=== PATIENT | female | born 1970 | race Hispanic/Latino ===

== ENCOUNTER 2022-01-07 13:42 | Emergency (ER) | payer OTHER ==
[~2022-01-07] VITALS: Ht 154.9 cm; Wt 62.6 kg
[2022-01-07 14:26] LABS: BASOPHILS % (AUTO) 0.2 % (0.0-5.0); EOSINOPHILS % (AUTO) 0.6 % (0.0-8.0); HEMATOCRIT 33.3 % (36-48); LYMPHOCYTES % (AUTO) 18.7 % (21.0-51.0); MEAN CORPUSCULAR HEMOGLOBIN 30.5 pg (27.0-33.0); MEAN CORPUSCULAR HGB CONC 36.9 g/dL (32.0-36.0); MEAN CORPUSCULAR VOLUME 82.6 fL (79-99); MONOCYTES % (AUTO) 6.9 % (3.0-13.0); NEUTROPHILS % (AUTO) 73.3 % (40.0-77.0); PLATELET COUNT (AUTO) 281 K/uL (130-400); RED BLOOD CELL COUNT(AUTO) 4.03 MIL/uL (4.00-5.50); WHITE BLOOD COUNT (AUTO) 6.4 K/uL (4.8-10.8)
[2022-01-07 14:39] LABS: ALBUMIN 2.6 g/dL (3.5-5.0); APPEARANCE,URINE CLEAR (CLEAR); BILIRUBIN,TOTAL 0.3 mg/dL (0.2-1.0); BILIRUBIN,URINE NEGATIVE (NEGATIVE); COLOR,URINE YELLOW (YELLOW); GLUCOSE, URINE (UA) >=1000 mg/dL (NEGATIVE); KETONES,URINE NEGATIVE (NEGATIVE); LEUKOCYTE ESTERASE ,URINE NEGATIVE (NEGATIVE); MAGNESIUM 1.6 mg/dL (1.80-2.40); NITRATE,URINE NEGATIVE (NEGATIVE); OCCULT BLOOD,URINE LARGE (NEGATIVE); PH,URINE 5.5 (5.0-8.0); POTASSIUM 4.4 mmol/L (3.5-5.1); PROTEIN,URINE 100 mg/dL (NEGATIVE); TOTAL PROTEIN, SERUM 6.6 g/dL (6.0-8.3); UROBILINOGEN,URINE 0.2 mg/dL (0.2-1.0)
[2022-01-07] MEDS ORDERED: PANTOPRAZOLE 40 MG/VIAL ONE (14:43)
[2022-01-07 14:53] LABS: INR 0.96 (0.85-1.15); PROTHROMBIN TIME 10.5 SEC (9.6-11.6)
[2022-01-07 14:55] LABS: PARTIAL THROMBOPLASTIN TIME 22.5 SEC (26.3-35.5)
[2022-01-07] MEDS ORDERED: NITROGLYCERIN 0.4 MG SL TAB SL PRN (15:00)
[2022-01-07 15:16] LABS: BACTERIA,URINE Rare /HPF (None Seen); WBC,URINE 0-1 /HPF (0-1)
[2022-01-07] MEDS ORDERED: INSULIN HUMULIN R 100 UNIT/ML 3ML ONE (15:17)
[2022-01-07] MEDS ORDERED: 0.9%NACL 1000ML 1,000 ML IV STA (15:27)
[2022-01-07 15:29] LABS: ABG BASE EXCESS 0.7 mmol/L (-2.0-3.0); ABG HCO3 23.9 mmol/L (21.0-28.0); ABG OXYGEN SATURATION 98.7 % (95.0-99.0); ABG PCO2 34 mmHg (32-45)
[2022-01-07] MEDS ORDERED: INSULIN HUMULIN R 100 UNIT/ML 3ML IV ONE (15:30)
[2022-01-07] MEDS ORDERED: PANT40TA55 PO (17:06)
[2022-01-07 22:08] VITALS: BP 166/85
== END 2022-01-07 22:10 | disposition home or self-care (01) ==
LOC: EDH 13:42
DX: E11.00 Type 2 diabetes mellitus with hyperosmolarity without nonketotic hyperglycemic-hyperosmolar coma (NKHHC) (principal); K21.9 Gastro-esophageal reflux disease without esophagitis; Z88.8 Allergy status to other drugs, medicaments and biological substances; Z98.890 Other specified postprocedural states
CPT/HCPCS: 36415; 36600; 71045; 78582; 80053; 81001; 82010; 82435; 82550; 82803; 82947; 82948 ×2; 83605; 83735; 83874; 83880; 84132; 84295; 84484; 85018; 85025; 85378; 85610; 85730; 93005; 96374; 96375; 99285; A9540; A9558; C9113; J1815; J7030

== ENCOUNTER 2022-08-19 21:48 | Emergency (ER) | payer OTHER ==
[~2022-08-19] VITALS: Ht 154.9 cm; Wt 56.2 kg
[~2022-08-19 21:48] MED LIST: PANT40TA55 PO
[2022-08-20 02:46] VITALS: BP 128/54
== END 2022-08-20 02:50 | disposition home or self-care (01) ==
LOC: EDH 21:48
DX: M79.662 Pain in left lower leg (principal); E11.9 Type 2 diabetes mellitus without complications; Z91.041 Radiographic dye allergy status

== ENCOUNTER 2023-01-26 01:32 | Inpatient (IN) | payer OTHER ==
[~2023-01-26] VITALS: Ht 154.9 cm; Wt 53.7 kg
[2023-01-26] MEDS ORDERED: LACTATED RINGERS 1000ML 1,000 ML IV ONE (04:00)
[2023-01-26] MEDS ORDERED: MORPHINE 4 MG SYG IVP ONE (04:00)
[2023-01-26] MEDS ORDERED: FAMOTIDINE 20MG TAB PO ONE (04:00)
[2023-01-26] MEDS ORDERED: ONDANSETRON 4MG INJ IVP ONE (04:00)
[2023-01-26 04:02] LABS: BASOPHILS % (AUTO) 0.3 % (0.0-5.0); EOSINOPHILS % (AUTO) 1.2 % (0.0-8.0); HEMATOCRIT 26.9 % (36-48); LYMPHOCYTES % (AUTO) 17.9 % (21.0-51.0); MEAN CORPUSCULAR HEMOGLOBIN 30.1 pg (27.0-33.0); MEAN CORPUSCULAR HGB CONC 36.4 g/dL (32.0-36.0); MEAN CORPUSCULAR VOLUME 82.5 fL (79-99); MONOCYTES % (AUTO) 7.2 % (3.0-13.0); NEUTROPHILS % (AUTO) 73.1 % (40.0-77.0); PLATELET COUNT (AUTO) 264 K/uL (130-400); RED BLOOD CELL COUNT(AUTO) 3.26 MIL/uL (4.00-5.50); RED CELL DISTRIBUTION WIDTH 12.9 % (11.0-15.5); WHITE BLOOD COUNT (AUTO) 6.5 K/uL (4.8-10.8)
[2023-01-26 04:09] LABS: CREATININE 1.3 mg/dL (0.5-1.5)
[2023-01-26 04:12] LABS: APPEARANCE,URINE CLOUDY (CLEAR); BILIRUBIN,URINE NEGATIVE (NEGATIVE); COLOR,URINE YELLOW (YELLOW); GLUCOSE, URINE (UA) 200 mg/dL (NEGATIVE); KETONES,URINE NEGATIVE (NEGATIVE); LEUKOCYTE ESTERASE ,URINE NEGATIVE Leu/uL (NEGATIVE); NITRATE,URINE NEGATIVE (NEGATIVE); OCCULT BLOOD,URINE SMALL (NEGATIVE); PROTEIN,URINE 600 mg/dL (NEGATIVE); UROBILINOGEN,URINE 0.2 mg/dL (0.2-1.0)
[2023-01-26 04:14] LABS: MUCUS,URINE RARE LPF (None Seen); OTHER CASTS, URINE 11 /LPF (None Seen); SQUAMOUS EPITHELIAL CELL,UR RARE /HPF (0-2)
[2023-01-26 04:17] LABS: ALBUMIN 3.1 g/dL (3.5-5.0); TOTAL PROTEIN, SERUM 7.6 g/dL (6.0-8.3)
[2023-01-26] MEDS ORDERED: ENOXAPARIN SODIUM 60 MG/0.6 ML SQ ONE (05:00)
[2023-01-26] MEDS ORDERED: NITROGLYCERIN 1GM OINT 1 INCH/1GM TD ONE (05:00)
[2023-01-26] MEDS ORDERED: ASPIRIN 325MG TAB PO ONE (05:00)
[2023-01-26] MEDS ORDERED: CLOPIDOGREL 300MG TAB PO ONE (05:00)
[2023-01-26] MEDS: INSULIN HUMULIN R 100 UNIT/ML 3ML SQ SCH ×4 (07:30→20:36)
[2023-01-26] MEDS: CEFTRIAXONE 1G VIAL IVPB SCH (07:45)
[2023-01-26] MEDS ORDERED: ASPIRIN 81MG CHEW TAB PO SCH (09:00)
[2023-01-26] MEDS ORDERED: METOPROLOL SUCCINATE 25 MG TAB.SR.24H PO SCH (09:00)
[2023-01-26] MEDS ORDERED: ENOXAPARIN SODIUM 60 MG/0.6 ML SQ SCH (09:00)
[2023-01-26] MEDS: CLONIDINE HCL 0.1 MG TABLET PO PRN (12:12)
[2023-01-26 14:30] VITALS: BP 148/84
[2023-01-26] MEDS ORDERED: METF-444 PO (16:29)
[2023-01-26] MEDS ORDERED: MAG/ALUM/SIMETH 30 ML UDCUP PO PRN (16:30)
[2023-01-26 16:34] VITALS: BP 157/73
[2023-01-26] MEDS ORDERED: GABA-529 PO (16:35)
[2023-01-26] MEDS ORDERED: MECO10005 PO (16:35)
[2023-01-26] MEDS ORDERED: ROSU20TA73 PO (16:35)
[2023-01-26] MEDS ORDERED: INSU300I SQ (16:35)
[2023-01-26] MEDS ORDERED: DICL100G61 TP (16:35)
[2023-01-26] MEDS ORDERED: FINE20TA PO (16:35)
[2023-01-26] MEDS ORDERED: LISI10TA24 PO (16:35)
[2023-01-26] MEDS ORDERED: MAGN250C PO (16:35)
[2023-01-26] MEDS ORDERED: VITA-300 PO (16:35)
[2023-01-26] MEDS: PANTOPRAZOLE 40 MG TAB DR PO SCH (17:21)
[2023-01-26 20:00] VITALS: BP 145/80
[2023-01-27] VITALS: BP 170/95
[2023-01-27] MEDS: CLONIDINE HCL 0.1 MG TABLET PO PRN ×2 (00:33→20:55)
[2023-01-27 04:00] VITALS: BP 140/78
[2023-01-27] MEDS: INSULIN HUMULIN R 100 UNIT/ML 3ML SQ SCH ×4 (06:06→20:19)
[2023-01-27 07:00] VITALS: BP 156/82
[2023-01-27] MEDS ORDERED: REGADENOSON 0.4 MG/5 ML PF SYG IVP SCH (07:00)
[2023-01-27] MEDS: PANTOPRAZOLE 40 MG TAB DR PO SCH (09:26)
[2023-01-27] MEDS: CEFTRIAXONE 1G VIAL IVPB SCH (09:26)
[2023-01-27] MEDS: METOPROLOL SUCCINATE 25 MG TAB.SR.24H PO SCH ×2 (09:26→20:55)
[2023-01-27 16:00] VITALS: BP 182/87
[2023-01-27 19:41] VITALS: BP 183/93
[2023-01-27 23:59] VITALS: BP 144/74
[2023-01-28 04:38] VITALS: BP 133/77
[2023-01-28] MEDS: INSULIN HUMULIN R 100 UNIT/ML 3ML SQ SCH ×4 (05:38→20:29)
[2023-01-28 08:29] VITALS: BP 150/94
[2023-01-28] MEDS: PANTOPRAZOLE 40 MG TAB DR PO SCH (08:52)
[2023-01-28] MEDS: METOPROLOL SUCCINATE 25 MG TAB.SR.24H PO SCH ×2 (08:52→20:37)
[2023-01-28] MEDS: CEFTRIAXONE 1G VIAL IVPB SCH (09:44)
[2023-01-28 12:30] VITALS: BP 185/92
[2023-01-28] MEDS: PREDNISONE 20 MG TABLET PO SCH ×2 (15:25→20:37)
[2023-01-28 16:12] VITALS: BP 178/98
[2023-01-28 19:44] VITALS: BP 180/94
[2023-01-28] MEDS ORDERED: ACETAMINOPHEN 325 MG TAB PO PRN (20:30)
[2023-01-28] MEDS: LACTULOSE 20 GM/30 ML UDCUP PO PRN (20:37)
[2023-01-28] MEDS: CLONIDINE HCL 0.1 MG TABLET PO PRN (20:37)
[2023-01-29] VITALS (13 sets, daily range): BP systolic 134–183; BP diastolic 74–96
[2023-01-29] MEDS: CLONIDINE HCL 0.1 MG TABLET PO PRN (00:33)
[2023-01-29 05:52] LABS: HEMATOCRIT 26.4 % (36-48); MEAN CORPUSCULAR HEMOGLOBIN 30.5 pg (27.0-33.0); MEAN CORPUSCULAR HGB CONC 36.4 g/dL (32.0-36.0); MEAN CORPUSCULAR VOLUME 83.8 fL (79-99); RED BLOOD CELL COUNT(AUTO) 3.15 MIL/uL (4.00-5.50); RED CELL DISTRIBUTION WIDTH 12.8 % (11.0-15.5); WHITE BLOOD COUNT (AUTO) 6.9 K/uL (4.8-10.8)
[2023-01-29 06:07] LABS: CREATININE 1.3 mg/dL (0.5-1.5); POTASSIUM 3.8 mmol/L (3.5-5.1)
[2023-01-29] MEDS: INSULIN HUMULIN R 100 UNIT/ML 3ML SQ SCH ×5 (06:16→23:50)
[2023-01-29 07:26] LABS: INR 1.02 (0.85-1.15); PROTHROMBIN TIME 11.1 SEC (9.6-11.6)
[2023-01-29 07:27] LABS: PARTIAL THROMBOPLASTIN TIME 23.9 SEC (26.3-35.5)
[2023-01-29] MEDS ORDERED: BIVALIRUDIN 250 MG/VIAL IV ONE (08:11)
[2023-01-29] MEDS ORDERED: IOHEXOL 350 MG/ML 100ML INFUS..BTL IV ONE (08:11)
[2023-01-29] MEDS ORDERED: NITROGLYCERIN 50MG VIAL ONE (08:11)
[2023-01-29] MEDS ORDERED: LIDOCAINE HCL 400MG/20ML VIAL ONE (08:11)
[2023-01-29] MEDS ORDERED: SOLU-MEDROL 125MG VIAL ONE (08:13)
[2023-01-29] MEDS ORDERED: FENTANYL CITRATE PF 50 MCG/1 ML 2ML VIAL ONE (08:45)
[2023-01-29] MEDS ORDERED: MIDAZOLAM HCL 1 MG/ML 2ML VIAL ONE ×2 (08:45→09:25)
[2023-01-29] MEDS ORDERED: CLOPIDOGREL 300MG TAB ONE (09:56)
[2023-01-29] MEDS ORDERED: ASPIRIN 325MG EC TAB PO ONE (09:56)
[2023-01-29] MEDS ORDERED: 0.9%NACL 1000ML 1,000 ML IV SCH (10:00)
[2023-01-29] MEDS: CEFTRIAXONE 1G VIAL IVPB SCH (11:10)
[2023-01-29] MEDS: METOPROLOL SUCCINATE 25 MG TAB.SR.24H PO SCH ×2 (11:12→20:10)
[2023-01-29] MEDS: PANTOPRAZOLE 40 MG TAB DR PO SCH (11:12)
[2023-01-29] MEDS: PREDNISONE 20 MG TABLET PO SCH ×2 (11:12→20:11)
[2023-01-29] MEDS: LACTULOSE 20 GM/30 ML UDCUP PO PRN (17:25)
[2023-01-29] MEDS ORDERED: ATORVASTATIN 40 MG TABLET PO SCH (21:00)
[2023-01-30 00:11] VITALS: BP 145/76
[2023-01-30] MEDS: INSULIN HUMULIN R 100 UNIT/ML 3ML SQ SCH ×3 (02:08→06:00)
[2023-01-30 04:00] VITALS: BP 146/89
[2023-01-30 08:30] VITALS: BP 161/82
[2023-01-30] MEDS ORDERED: AMLODIPINE 5 MG TAB PO SCH (09:00)
[2023-01-30] MEDS ORDERED: CLOPIDOGREL 75MG TAB PO SCH (09:00)
[2023-01-30] MEDS ORDERED: ASPIRIN 81MG CHEW TAB PO SCH (09:00)
[2023-01-30] MEDS: CEFTRIAXONE 1G VIAL IVPB SCH (09:25)
[2023-01-30] MEDS: PANTOPRAZOLE 40 MG TAB DR PO SCH (09:31)
[2023-01-30] MEDS: PREDNISONE 20 MG TABLET PO SCH (09:33)
[2023-01-30] MEDS: METOPROLOL SUCCINATE 25 MG TAB.SR.24H PO SCH (09:33)
[2023-01-30] MEDS ORDERED: INSULIN HUMULIN R 100 UNIT/ML 3ML SQ SCH (11:30)
[2023-01-30 12:16] VITALS: BP 159/90
[2023-01-31] MEDS ORDERED: AMLODIPINE 5 MG TAB PO SCH (09:00)
== END 2023-01-30 14:51 | disposition home or self-care (01) | DRG 247 ==
LOC: EDH 01:32 → EDHIP 05:55 → 2AH 14:01
PROVIDERS: ADMIT Internal Medicine; ATTEND Internal Medicine
PROC: 4A023N7 Measurement of Cardiac Sampling and Pressure, Left Heart, Percutaneous Approach (ICD-10-PCS; principal; 2023-01-29)
PROC: 027135Z Dilation of Coronary Artery, Two Arteries with Two Drug-eluting Intraluminal Devices, Percutaneous Approach (ICD-10-PCS; 2023-01-29)
PROC: B2111ZZ Fluoroscopy of Multiple Coronary Arteries using Low Osmolar Contrast (ICD-10-PCS; 2023-01-29)
DX: I21.4 Non-ST elevation (NSTEMI) myocardial infarction (principal); N39.0 Urinary tract infection, site not specified; I25.10 Atherosclerotic heart disease of native coronary artery without angina pectoris; K52.9 Noninfective gastroenteritis and colitis, unspecified; I34.81 Nonrheumatic mitral (valve) annulus calcification; E78.00 Pure hypercholesterolemia, unspecified; I10 Essential (primary) hypertension; I25.2 Old myocardial infarction; Z87.891 Personal history of nicotine dependence; Z82.49 Family history of ischemic heart disease and other diseases of the circulatory system; Z91.041 Radiographic dye allergy status
CPT/HCPCS: 36415; 71045; 74176; 76700; 78452; 80048; 80053; 81001; 82550; 82948; 83690; 83874; 83880; 84484; 84702; 85025; 85027; 85610; 85730; 87088; 92978; 93005; 93017; 93306; 93356; 93454; 96374; 99156; 99157; A9500; C1769; C1887; C1894; C9600; C9601; G0378; J0583; J0696; J1644; J1650; J1815; J2250; J2270; J2405; J2785; J2930; J3010; J3490; J7120; Q9967

== ENCOUNTER 2023-03-01 12:00 | Inpatient (IN) | payer OTHER ==
[~2023-03-01] VITALS: Ht 154.9 cm; Wt 53.3 kg
[~2023-03-01 12:00] MED LIST changes: +DICL100G61 TP; +FINE20TA PO; +GABA-529 PO; +INSU300I SQ; +LISI10TA24 PO; +MAGN250C PO; +MECO10005 PO; +METF-444 PO; -PANT40TA55 PO; +ROSU20TA73 PO; +VITA-300 PO
[2023-03-01 12:24] LABS: BASOPHILS % (AUTO) 0.4 % (0.0-5.0); EOSINOPHILS % (AUTO) 1.8 % (0.0-8.0); HEMATOCRIT 23.7 % (36-48); LYMPHOCYTES % (AUTO) 24.5 % (21.0-51.0); MEAN CORPUSCULAR HEMOGLOBIN 30.4 pg (27.0-33.0); MEAN CORPUSCULAR HGB CONC 35.4 g/dL (32.0-36.0); MEAN CORPUSCULAR VOLUME 85.9 fL (79-99); MONOCYTES % (AUTO) 6.9 % (3.0-13.0); PLATELET COUNT (AUTO) 244 K/uL (130-400); RED BLOOD CELL COUNT(AUTO) 2.76 MIL/uL (4.00-5.50); RED CELL DISTRIBUTION WIDTH 13.7 % (11.0-15.5); WHITE BLOOD COUNT (AUTO) 5.1 K/uL (4.8-10.8)
[2023-03-01 12:35] LABS: CREATININE 1.4 mg/dL (0.5-1.5); POTASSIUM 3.4 mmol/L (3.5-5.1)
[2023-03-01 12:40] LABS: MAGNESIUM 1.5 mg/dL (1.80-2.40); TOTAL PROTEIN, SERUM 7.1 g/dL (6.0-8.3)
[2023-03-01] MEDS: NITROGLYCERIN 0.4 MG SL TAB SL PRN ×3 (13:49→15:32)
[2023-03-01] MEDS ORDERED: CLOPIDOGREL 300MG TAB PO ONE (16:30)
[2023-03-01] MEDS ORDERED: ENOXAPARIN SODIUM 60 MG/0.6 ML SQ ONE (16:30)
[2023-03-01] MEDS: 0.9%NACL 1000ML 1,000 ML IV SCH (17:43)
[2023-03-01] MEDS ORDERED: METF-444 PO (18:31)
[2023-03-01] MEDS ORDERED: FINE20TA PO (18:31)
[2023-03-01] MEDS ORDERED: GABA-529 PO (18:31)
[2023-03-01] MEDS ORDERED: CLOP75TA32 PO (18:31)
[2023-03-01] MEDS ORDERED: ROSU20TA73 PO (18:31)
[2023-03-01] MEDS ORDERED: LISI10TA24 PO (18:31)
[2023-03-01] MEDS ORDERED: INSU300I SQ (18:31)
[2023-03-01] MEDS ORDERED: METO-391 PO (18:31)
[2023-03-01] MEDS ORDERED: NITR0.4T50 SL (18:31)
[2023-03-01] MEDS ORDERED: ASPI-1197 PO (18:31)
[2023-03-01] MEDS ORDERED: ISOS30TA92 PO (18:31)
[2023-03-01 18:37] LABS: APPEARANCE,URINE CLOUDY (CLEAR); BILIRUBIN,URINE NEGATIVE (NEGATIVE); COLOR,URINE LIGHT-YELLOW (YELLOW); GLUCOSE, URINE (UA) 300 mg/dL (NEGATIVE); KETONES,URINE NEGATIVE (NEGATIVE); LEUKOCYTE ESTERASE ,URINE NEGATIVE Leu/uL (NEGATIVE); NITRATE,URINE NEGATIVE (NEGATIVE); OCCULT BLOOD,URINE SMALL (NEGATIVE); PROTEIN,URINE 300 mg/dL (NEGATIVE); UROBILINOGEN,URINE 0.2 mg/dL (0.2-1.0)
[2023-03-01 18:42] LABS: BACTERIA,URINE MANY /HPF (None Seen); MUCUS,URINE RARE LPF (None Seen); RBC,URINE 0-1 /HPF (0-1); SQUAMOUS EPITHELIAL CELL,UR MANY /HPF (0-2)
[2023-03-01] MEDS ORDERED: METOPROLOL SUCCINATE 50 MG TAB.SR.24H PO ONE (20:30)
[2023-03-01] MEDS ORDERED: DiphenhydrAMINE HCL 50 MG/ML VIAL IVP PRN (20:30)
[2023-03-01] MEDS ORDERED: SOLU-MEDROL 125MG VIAL IVP PRN (20:30)
[2023-03-01] MEDS: ATORVASTATIN 40 MG TABLET PO SCH (21:03)
[2023-03-01] MEDS: INSULIN HUMULIN R 100 UNIT/ML 3ML SQ SCH (21:11)
[2023-03-01] MEDS: MORPHINE 2 MG SYG IVP PRN (21:20)
[2023-03-01 23:08] VITALS: BP 133/82; PULSE 96; RESP 16
[2023-03-01 23:57] VITALS: O2SAT 100
[2023-03-02] VITALS (7 sets, daily range): BP systolic 117–160; BP diastolic 60–91; PULSE 81–90; RESP 15–18; O2SAT 97–99
[2023-03-02 04:53] LABS: HEMATOCRIT 22.2 % (36-48); MEAN CORPUSCULAR HEMOGLOBIN 30.4 pg (27.0-33.0); MEAN CORPUSCULAR HGB CONC 35.1 g/dL (32.0-36.0); MEAN CORPUSCULAR VOLUME 86.4 fL (79-99); RED BLOOD CELL COUNT(AUTO) 2.57 MIL/uL (4.00-5.50); RED CELL DISTRIBUTION WIDTH 13.6 % (11.0-15.5); WHITE BLOOD COUNT (AUTO) 6.1 K/uL (4.8-10.8)
[2023-03-02] MEDS: 0.9%NACL 1000ML 1,000 ML IV SCH ×2 (05:00→14:29)
[2023-03-02 05:04] LABS: INR 0.98 (0.85-1.15); PROTHROMBIN TIME 11.4 SEC (9.6-11.6)
[2023-03-02 05:06] LABS: PARTIAL THROMBOPLASTIN TIME 25.2 SEC (26.3-35.5)
[2023-03-02 05:17] LABS: CREATININE 1.4 mg/dL (0.5-1.5); POTASSIUM 3.3 mmol/L (3.5-5.1)
[2023-03-02] MEDS: INSULIN HUMULIN R 100 UNIT/ML 3ML SQ SCH ×4 (07:30→21:00)
[2023-03-02] MEDS: METOPROLOL SUCCINATE 50 MG TAB.SR.24H PO SCH (09:18)
[2023-03-02] MEDS: ASPIRIN 81 MG EC TAB PO SCH (09:18)
[2023-03-02] MEDS: CLOPIDOGREL 75MG TAB PO SCH (09:18)
[2023-03-02 10:52] LABS: HEMOGLOBIN A1C 6.9 % (4.0-6.0)
[2023-03-02 10:56] LABS: CHOLESTEROL 136 mg/dL (<200); HDL CHOLESTEROL 56 mg/dL (35-85); LDL DIRECT 51 mg/dL (0-99); TRIGLYCERIDES 149 mg/dL (30-200)
[2023-03-02] MEDS: ISOSORBIDE MONO 30MG SR TAB PO SCH (13:59)
[2023-03-02] MEDS: FERROUS SULFATE 325 MG TABLET.DR PO SCH (13:59)
[2023-03-02] MEDS ORDERED: POTASSIUM CHLORIDE 20MEQ/100ML 100 ML IV PRN (14:00)
[2023-03-02] MEDS ORDERED: MAGNESIUM 2GM PREMIX 50ML 50 ML IV PRN ×2 (14:00→15:00)
[2023-03-02] MEDS ORDERED: MAGNESIUM 2GM PREMIX 50ML 50 ML IV NR (15:00)
[2023-03-02] MEDS: ATORVASTATIN 40 MG TABLET PO SCH (21:38)
[2023-03-02] MEDS: POTASSIUM CHLORIDE 10% ELIXIR 20 MEQ/15 ML UDCUP PO PRN (21:40)
[2023-03-03] VITALS (7 sets, daily range): BP systolic 146–187; BP diastolic 69–86; PULSE 82–93; RESP 16–18; TEMP 97.5; O2SAT 99
[2023-03-03] MEDS: ACETAMINOPHEN 325 MG TAB PO PRN ×2 (05:01→22:30)
[2023-03-03] MEDS: INSULIN HUMULIN R 100 UNIT/ML 3ML SQ SCH ×4 (07:27→22:21)
[2023-03-03 09:01] LABS: MEAN CORPUSCULAR HEMOGLOBIN 30.9 pg (27.0-33.0); MEAN CORPUSCULAR VOLUME 88.4 fL (79-99); PLATELET COUNT (AUTO) 232 K/uL (130-400); RED BLOOD CELL COUNT(AUTO) 2.49 MIL/uL (4.00-5.50); RED CELL DISTRIBUTION WIDTH 13.5 % (11.0-15.5)
[2023-03-03 09:24] LABS: BASOPHILS % (MANUAL) 1 % (0-2); EOSINOPHILS % (MANUAL) 2 % (1-6); LYMPHOCYTES % (MANUAL) 19 % (22-44); MAN.DIFF COMMENT-IMPRESSION MANUAL DIFFERENTIAL; MONOCYTES % (MANUAL) 5 % (2-9); SEGMENTED NEUTROPHILS % 73 % (40-70)
[2023-03-03 09:25] LABS: PLATELET MORPHOLOGY COMMENT ADEQUATE
[2023-03-03] MEDS: METOPROLOL SUCCINATE 50 MG TAB.SR.24H PO SCH (10:19)
[2023-03-03] MEDS: ASPIRIN 81 MG EC TAB PO SCH (10:19)
[2023-03-03] MEDS: CLOPIDOGREL 75MG TAB PO SCH (10:19)
[2023-03-03] MEDS: FERROUS SULFATE 325 MG TABLET.DR PO SCH (10:19)
[2023-03-03] MEDS: ISOSORBIDE MONO 30MG SR TAB PO SCH (10:19)
[2023-03-03] MEDS: 0.9%NACL 1000ML 1,000 ML IV SCH ×3 (10:20→22:20)
[2023-03-03] MEDS: ATORVASTATIN 40 MG TABLET PO SCH (22:20)
[2023-03-04] VITALS: BP 153/73; PULSE 86; RESP 19
[2023-03-04 04:00] VITALS: BP 149/90; PULSE 96; RESP 20
[2023-03-04] MEDS: INSULIN HUMULIN R 100 UNIT/ML 3ML SQ SCH ×4 (06:27→21:01)
[2023-03-04 08:00] VITALS: BP 159/85; PULSE 95; RESP 17; O2SAT 98
[2023-03-04] MEDS: ISOSORBIDE MONO 30MG SR TAB PO SCH (09:21)
[2023-03-04] MEDS: METOPROLOL SUCCINATE 50 MG TAB.SR.24H PO SCH (09:22)
[2023-03-04] MEDS: MORPHINE 2 MG SYG IVP PRN ×2 (09:23→19:53)
[2023-03-04] MEDS: ASPIRIN 81 MG EC TAB PO SCH (09:43)
[2023-03-04] MEDS: FERROUS SULFATE 325 MG TABLET.DR PO SCH (09:43)
[2023-03-04] MEDS: CLOPIDOGREL 75MG TAB PO SCH (09:43)
[2023-03-04 12:00] VITALS: BP 160/83; PULSE 77; RESP 17
[2023-03-04] MEDS ORDERED: THROMBIN-JMI 5000 UNIT/VIAL TP ONE (13:56)
[2023-03-04 16:00] VITALS: BP 185/91; PULSE 92; RESP 18
[2023-03-04] MEDS: ATORVASTATIN 40 MG TABLET PO SCH (19:53)
[2023-03-04 20:00] VITALS: BP 157/75; PULSE 85; RESP 18; O2SAT 99
[2023-03-05] VITALS (8 sets, daily range): BP systolic 148–175; BP diastolic 74–83; PULSE 76–89; RESP 16–20; O2SAT 98
[2023-03-05 05:22] LABS: HEMATOCRIT 30.8 % (36-48); MEAN CORPUSCULAR HEMOGLOBIN 30.4 pg (27.0-33.0); MEAN CORPUSCULAR HGB CONC 35.4 g/dL (32.0-36.0); MEAN CORPUSCULAR VOLUME 85.8 fL (79-99); RED BLOOD CELL COUNT(AUTO) 3.59 MIL/uL (4.00-5.50)
[2023-03-05 05:37] LABS: ALBUMIN 3.2 g/dL (3.5-5.0); CREATININE 1.1 mg/dL (0.5-1.5); POTASSIUM 3.2 mmol/L (3.5-5.1); TOTAL PROTEIN, SERUM 7.3 g/dL (6.0-8.3)
[2023-03-05] MEDS: POTASSIUM CHLORIDE 10% ELIXIR 20 MEQ/15 ML UDCUP PO PRN ×3 (06:23→15:30)
[2023-03-05] MEDS: INSULIN HUMULIN R 100 UNIT/ML 3ML SQ SCH ×4 (06:37→21:00)
[2023-03-05] MEDS: FERROUS SULFATE 325 MG TABLET.DR PO SCH (09:15)
[2023-03-05] MEDS: ASPIRIN 81 MG EC TAB PO SCH (09:15)
[2023-03-05] MEDS: 0.9%NACL 1000ML 1,000 ML IV SCH ×2 (09:16→20:30)
[2023-03-05] MEDS: METOPROLOL SUCCINATE 50 MG TAB.SR.24H PO SCH (09:16)
[2023-03-05] MEDS: ISOSORBIDE MONO 30MG SR TAB PO SCH (09:16)
[2023-03-05] MEDS: CLOPIDOGREL 75MG TAB PO SCH (09:16)
[2023-03-05] MEDS: MORPHINE 2 MG SYG IVP PRN ×2 (09:20→17:14)
[2023-03-05] MEDS ORDERED: LISINOPRIL 10 MG TABLET PO ONE (12:30)
[2023-03-05] MEDS: ATORVASTATIN 40 MG TABLET PO SCH (21:38)
[2023-03-06] VITALS (7 sets, daily range): BP systolic 134–159; BP diastolic 71–92; PULSE 83–93; RESP 16–20; O2SAT 97–98
[2023-03-06] MEDS: INSULIN HUMULIN R 100 UNIT/ML 3ML SQ SCH ×4 (05:23→21:00)
[2023-03-06 05:30] LABS: BASOPHILS % (AUTO) 0.2 % (0.0-5.0); EOSINOPHILS % (AUTO) 2.7 % (0.0-8.0); HEMATOCRIT 28.1 % (36-48); LYMPHOCYTES % (AUTO) 26.9 % (21.0-51.0); MEAN CORPUSCULAR HEMOGLOBIN 29.9 pg (27.0-33.0); MEAN CORPUSCULAR HGB CONC 34.9 g/dL (32.0-36.0); MEAN CORPUSCULAR VOLUME 85.7 fL (79-99); MONOCYTES % (AUTO) 13.3 % (3.0-13.0); NEUTROPHILS % (AUTO) 56.5 % (40.0-77.0); PLATELET COUNT (AUTO) 227 K/uL (130-400); RED BLOOD CELL COUNT(AUTO) 3.28 MIL/uL (4.00-5.50); RED CELL DISTRIBUTION WIDTH 14.2 % (11.0-15.5); WHITE BLOOD COUNT (AUTO) 5.6 K/uL (4.8-10.8)
[2023-03-06 05:50] LABS: ALBUMIN 2.9 g/dL (3.5-5.0); TOTAL PROTEIN, SERUM 6.7 g/dL (6.0-8.3)
[2023-03-06] MEDS: 0.9%NACL 1000ML 1,000 ML IV SCH ×2 (09:00→21:41)
[2023-03-06] MEDS ORDERED: LISINOPRIL 10 MG TABLET PO SCH (09:00)
[2023-03-06] MEDS: ISOSORBIDE MONO 30MG SR TAB PO SCH (09:15)
[2023-03-06] MEDS: FERROUS SULFATE 325 MG TABLET.DR PO SCH (09:16)
[2023-03-06] MEDS: METOPROLOL SUCCINATE 50 MG TAB.SR.24H PO SCH (09:16)
[2023-03-06] MEDS: ASPIRIN 81 MG EC TAB PO SCH (09:16)
[2023-03-06] MEDS: CLOPIDOGREL 75MG TAB PO SCH (09:16)
[2023-03-06] MEDS: LISINOPRIL 10 MG TABLET PO SCH ×2 (11:00→21:41)
[2023-03-06] MEDS: MORPHINE 2 MG SYG IVP PRN (17:28)
[2023-03-06] MEDS: ATORVASTATIN 40 MG TABLET PO SCH (21:40)
[2023-03-07] VITALS (7 sets, daily range): BP systolic 137–160; BP diastolic 75–98; PULSE 84–94; RESP 16–17; O2SAT 97
[2023-03-07] MEDS: ACETAMINOPHEN 325 MG TAB PO PRN ×2 (02:13→04:00)
[2023-03-07] MEDS: INSULIN HUMULIN R 100 UNIT/ML 3ML SQ SCH ×4 (05:55→20:19)
[2023-03-07] MEDS: LISINOPRIL 10 MG TABLET PO SCH ×2 (09:15→20:22)
[2023-03-07] MEDS: CLOPIDOGREL 75MG TAB PO SCH (09:15)
[2023-03-07] MEDS: METOPROLOL SUCCINATE 50 MG TAB.SR.24H PO SCH ×2 (09:15→20:21)
[2023-03-07] MEDS: ASPIRIN 81 MG EC TAB PO SCH (09:15)
[2023-03-07] MEDS: FERROUS SULFATE 325 MG TABLET.DR PO SCH (09:15)
[2023-03-07] MEDS: ISOSORBIDE MONO 30MG SR TAB PO SCH (09:15)
[2023-03-07] MEDS: ATORVASTATIN 40 MG TABLET PO SCH (20:22)
[2023-03-07] MEDS: MORPHINE 2 MG SYG IVP PRN (20:26)
[2023-03-08] VITALS (7 sets, daily range): BP systolic 140–150; BP diastolic 73–94; PULSE 85–95; RESP 17–20; O2SAT 93–99
[2023-03-08] MEDS: INSULIN HUMULIN R 100 UNIT/ML 3ML SQ SCH ×4 (05:12→20:47)
[2023-03-08] MEDS: FERROUS SULFATE 325 MG TABLET.DR PO SCH (09:37)
[2023-03-08] MEDS: LISINOPRIL 10 MG TABLET PO SCH ×2 (09:38→20:49)
[2023-03-08] MEDS: ISOSORBIDE MONO 30MG SR TAB PO SCH (09:38)
[2023-03-08] MEDS: METOPROLOL SUCCINATE 50 MG TAB.SR.24H PO SCH ×2 (09:38→20:49)
[2023-03-08] MEDS: CLOPIDOGREL 75MG TAB PO SCH (09:38)
[2023-03-08] MEDS: ASPIRIN 81 MG EC TAB PO SCH (09:38)
[2023-03-08] MEDS: MORPHINE 2 MG SYG IVP PRN ×2 (13:10→20:51)
[2023-03-08] MEDS: ATORVASTATIN 40 MG TABLET PO SCH (20:50)
[2023-03-09 04:00] VITALS: BP 156/78; PULSE 85; RESP 19
[2023-03-09] MEDS: INSULIN HUMULIN R 100 UNIT/ML 3ML SQ SCH ×4 (06:14→20:57)
[2023-03-09 07:53] VITALS: BP 133/70; PULSE 81; RESP 18
[2023-03-09 07:55] VITALS: O2SAT 99
[2023-03-09] MEDS: ISOSORBIDE MONO 30MG SR TAB PO SCH (08:37)
[2023-03-09] MEDS: METOPROLOL SUCCINATE 50 MG TAB.SR.24H PO SCH ×2 (08:37→20:50)
[2023-03-09] MEDS: LISINOPRIL 10 MG TABLET PO SCH ×2 (08:37→20:50)
[2023-03-09] MEDS: ASPIRIN 81 MG EC TAB PO SCH (08:37)
[2023-03-09] MEDS: CLOPIDOGREL 75MG TAB PO SCH (08:37)
[2023-03-09] MEDS: FERROUS SULFATE 325 MG TABLET.DR PO SCH (08:37)
[2023-03-09 12:00] VITALS: BP 153/75; PULSE 82; RESP 18
[2023-03-09] MEDS: MORPHINE 2 MG SYG IVP PRN ×2 (12:53→20:50)
[2023-03-09 16:00] VITALS: BP 151/74; PULSE 86; RESP 18
[2023-03-09 20:00] VITALS: BP 136/75; PULSE 85; RESP 18; O2SAT 99
[2023-03-09] MEDS: ATORVASTATIN 40 MG TABLET PO SCH (20:50)
[2023-03-10] VITALS (8 sets, daily range): BP systolic 137–170; BP diastolic 74–94; PULSE 79–88; RESP 17–20; O2SAT 99
[2023-03-10] MEDS: INSULIN HUMULIN R 100 UNIT/ML 3ML SQ SCH ×4 (06:26→20:39)
[2023-03-10] MEDS: METOPROLOL SUCCINATE 50 MG TAB.SR.24H PO SCH ×2 (09:05→20:32)
[2023-03-10] MEDS: ASPIRIN 81 MG EC TAB PO SCH (09:05)
[2023-03-10] MEDS: FERROUS SULFATE 325 MG TABLET.DR PO SCH (09:05)
[2023-03-10] MEDS: LISINOPRIL 10 MG TABLET PO SCH ×2 (09:05→20:32)
[2023-03-10] MEDS: CLOPIDOGREL 75MG TAB PO SCH (09:05)
[2023-03-10] MEDS: ISOSORBIDE MONO 30MG SR TAB PO SCH (09:05)
[2023-03-10] MEDS: MORPHINE 2 MG SYG IVP PRN ×2 (14:30→20:34)
[2023-03-10] MEDS ORDERED: LACTULOSE 20 GM/30 ML UDCUP PO PRN (19:00)
[2023-03-10] MEDS: ATORVASTATIN 40 MG TABLET PO SCH (20:32)
[2023-03-11] VITALS (27 sets, daily range): BP systolic 138–184; BP diastolic 58–87; PULSE 82–113; RESP 13–20; O2SAT 98
[2023-03-11] MEDS: INSULIN HUMULIN R 100 UNIT/ML 3ML SQ SCH ×4 (05:39→20:33)
[2023-03-11 05:47] LABS: HEMATOCRIT 26.5 % (36-48); MEAN CORPUSCULAR HEMOGLOBIN 29.6 pg (27.0-33.0); MEAN CORPUSCULAR HGB CONC 35.1 g/dL (32.0-36.0); MEAN CORPUSCULAR VOLUME 84.4 fL (79-99); RED BLOOD CELL COUNT(AUTO) 3.14 MIL/uL (4.00-5.50); RED CELL DISTRIBUTION WIDTH 13.9 % (11.0-15.5); WHITE BLOOD COUNT (AUTO) 6.1 K/uL (4.8-10.8)
[2023-03-11 06:02] LABS: INR 0.95 (0.85-1.15); PROTHROMBIN TIME 11.1 SEC (9.6-11.6)
[2023-03-11 06:04] LABS: PARTIAL THROMBOPLASTIN TIME 24.8 SEC (26.3-35.5)
[2023-03-11 06:07] LABS: CREATININE 1.1 mg/dL (0.5-1.5); POTASSIUM 3.8 mmol/L (3.5-5.1)
[2023-03-11] MEDS: LISINOPRIL 10 MG TABLET PO SCH ×2 (07:29→20:13)
[2023-03-11] MEDS: CLOPIDOGREL 75MG TAB PO SCH (07:29)
[2023-03-11] MEDS: ISOSORBIDE MONO 30MG SR TAB PO SCH (07:29)
[2023-03-11] MEDS: FERROUS SULFATE 325 MG TABLET.DR PO SCH (07:29)
[2023-03-11] MEDS: METOPROLOL SUCCINATE 50 MG TAB.SR.24H PO SCH ×2 (07:29→20:13)
[2023-03-11] MEDS: ASPIRIN 81 MG EC TAB PO SCH (07:29)
[2023-03-11] MEDS ORDERED: CEFAZOLIN SODIUM 1 GM VIAL ONE (07:38)
[2023-03-11] MEDS ORDERED: CEFAZOLIN SODIUM 2 GM VIAL ONE (07:52)
[2023-03-11] MEDS ORDERED: CEFAZOLIN SODIUM 1 GM VIAL IVPB ONE (08:00)
[2023-03-11] MEDS ORDERED: ETOMIDATE 20MG VIAL ONE (08:08)
[2023-03-11] MEDS ORDERED: PHENYLEPHRINE HCL 10 MG/ML 1ML VIAL IV ONE (08:08)
[2023-03-11] MEDS ORDERED: LIDOCAINE PF 100MG/5ML (2%) SYRINGE 5ML ONE (08:08)
[2023-03-11] MEDS ORDERED: FENTANYL CITRATE PF 50 MCG/1 ML 2ML VIAL ONE ×2 (08:11→09:30)
[2023-03-11] MEDS ORDERED: ROCURONIUM 10MG/1ML SYR 10 MG/ML ML ONE ×2 (08:11→09:30)
[2023-03-11] MEDS ORDERED: EPHEDRINE SULFATE 50 MG/ML AMPULE ONE (08:11)
[2023-03-11] MEDS ORDERED: MIDAZOLAM HCL 1 MG/ML 2ML VIAL ONE (08:11)
[2023-03-11] MEDS ORDERED: NEOSTIGMINE 5MG/5ML SYR IV ONE (08:11)
[2023-03-11] MEDS ORDERED: VASOPRESSIN 20 UNITS/ML 1ML VIAL ONE (08:20)
[2023-03-11] MEDS ORDERED: ALBUMIN (HUMAN) 5% 250 ML IV ONE (08:20)
[2023-03-11] MEDS ORDERED: PROPOFOL 10 MG/ML 20ML VIAL IV ONE (09:20)
[2023-03-11] MEDS ORDERED: TRAMADOL HCL 50 MG TABLET PO PRN (09:30)
[2023-03-11] MEDS ORDERED: ACETAMINOPHEN 325 MG TAB PO PRN (09:30)
[2023-03-11] MEDS ORDERED: HEPARIN 10,000 UNIT/10ML (1,000 UNIT/ML) VIAL ONE (09:43)
[2023-03-11] MEDS ORDERED: PROTAMINE SULFATE 10 MG/ML 25ML VIAL IV ONE (10:00)
[2023-03-11] MEDS ORDERED: VANCOMYCIN 1G/250ML KIT 250 ML IV ONE (10:04)
[2023-03-11] MEDS ORDERED: SUGAMMADEX SODIUM 200 MG/2 ML VIAL IV ONE (10:17)
[2023-03-11] MEDS ORDERED: ONDANSETRON 4MG INJ ONE (10:47)
[2023-03-11] MEDS ORDERED: MEPERIDINE-PF 25 MG/ML SYG ONE ×2 (10:47→11:02)
[2023-03-11] MEDS ORDERED: LABETALOL 20MG SYG IV ONE (10:47)
[2023-03-11] MEDS: CEFAZOLIN SODIUM 1 GM VIAL IVPB SCH (17:48)
[2023-03-11] MEDS: ATORVASTATIN 40 MG TABLET PO SCH (20:13)
[2023-03-11] MEDS: MORPHINE 2 MG SYG IVP PRN (20:29)
[2023-03-12] VITALS (8 sets, daily range): BP systolic 135–157; BP diastolic 59–82; PULSE 81–87; RESP 18; O2SAT 95–100
[2023-03-12] MEDS: CEFAZOLIN SODIUM 1 GM VIAL IVPB SCH ×2 (00:55→08:18)
[2023-03-12] MEDS: INSULIN HUMULIN R 100 UNIT/ML 3ML SQ SCH ×4 (06:34→20:46)
[2023-03-12 06:35] LABS: HEMATOCRIT 24.6 % (36-48); MEAN CORPUSCULAR HEMOGLOBIN 30.2 pg (27.0-33.0); MEAN CORPUSCULAR HGB CONC 34.1 g/dL (32.0-36.0); MEAN CORPUSCULAR VOLUME 88.5 fL (79-99); RED BLOOD CELL COUNT(AUTO) 2.78 MIL/uL (4.00-5.50); WHITE BLOOD COUNT (AUTO) 7.9 K/uL (4.8-10.8)
[2023-03-12 06:45] LABS: ALBUMIN 2.7 g/dL (3.5-5.0); POTASSIUM 3.8 mmol/L (3.5-5.1)
[2023-03-12] MEDS: CLOPIDOGREL 75MG TAB PO SCH (08:18)
[2023-03-12] MEDS: FERROUS SULFATE 325 MG TABLET.DR PO SCH (08:18)
[2023-03-12] MEDS: ASPIRIN 81 MG EC TAB PO SCH (08:18)
[2023-03-12] MEDS: METOPROLOL SUCCINATE 50 MG TAB.SR.24H PO SCH ×2 (08:18→20:46)
[2023-03-12] MEDS: LISINOPRIL 10 MG TABLET PO SCH ×2 (08:18→20:46)
[2023-03-12] MEDS: NITROGLYCERIN 0.4 MG SL TAB SL PRN (08:19)
[2023-03-12] MEDS: ISOSORBIDE MONO 30MG SR TAB PO SCH (08:25)
[2023-03-12] MEDS ORDERED: NITROGLYCERIN 0.4 MG SL TAB SL PRN (09:00)
[2023-03-12] MEDS ORDERED: MORPHINE 4 MG SYG IM PRN (09:30)
[2023-03-12] MEDS ORDERED: MORPHINE 4 MG SYG IV PRN (15:30)
[2023-03-12] MEDS: ATORVASTATIN 40 MG TABLET PO SCH (20:46)
[2023-03-13] VITALS (7 sets, daily range): BP systolic 139–161; BP diastolic 75–85; PULSE 79–84; RESP 18; O2SAT 99–100
[2023-03-13] MEDS: INSULIN HUMULIN R 100 UNIT/ML 3ML SQ SCH ×4 (06:42→21:13)
[2023-03-13] MEDS: ISOSORBIDE MONO 30MG SR TAB PO SCH (08:44)
[2023-03-13] MEDS: ASPIRIN 81 MG EC TAB PO SCH (08:45)
[2023-03-13] MEDS: FERROUS SULFATE 325 MG TABLET.DR PO SCH (08:45)
[2023-03-13] MEDS: METOPROLOL SUCCINATE 50 MG TAB.SR.24H PO SCH ×2 (08:45→21:10)
[2023-03-13] MEDS: LISINOPRIL 10 MG TABLET PO SCH ×2 (08:45→21:10)
[2023-03-13] MEDS: CLOPIDOGREL 75MG TAB PO SCH (08:45)
[2023-03-13] MEDS ORDERED: ISOS60TA77 PO (12:08)
[2023-03-13] MEDS ORDERED: METO-391 PO (12:08)
[2023-03-13] MEDS: TRAMADOL HCL 50 MG TABLET PO PRN (14:19)
[2023-03-13] MEDS: ATORVASTATIN 40 MG TABLET PO SCH (21:10)
[2023-03-14 00:32] VITALS: BP 121/72; PULSE 82; RESP 18
[2023-03-14 04:07] VITALS: BP 139/74; PULSE 76; RESP 18
[2023-03-14] MEDS: INSULIN HUMULIN R 100 UNIT/ML 3ML SQ SCH (06:17)
[2023-03-14 07:05] VITALS: O2SAT 100
[2023-03-14 08:03] VITALS: BP 157/79; PULSE 78; RESP 18
[2023-03-14] MEDS: TRAMADOL HCL 50 MG TABLET PO PRN (08:26)
[2023-03-14] MEDS ORDERED: ISOSORBIDE MONO 60MG SR TAB PO SCH (09:00)
[2023-03-14] MEDS: ASPIRIN 81 MG EC TAB PO SCH (09:17)
[2023-03-14] MEDS: CLOPIDOGREL 75MG TAB PO SCH (09:18)
[2023-03-14] MEDS: LISINOPRIL 10 MG TABLET PO SCH (09:18)
[2023-03-14] MEDS: FERROUS SULFATE 325 MG TABLET.DR PO SCH (09:18)
[2023-03-14] MEDS: METOPROLOL SUCCINATE 50 MG TAB.SR.24H PO SCH (09:19)
== END 2023-03-14 12:00 | disposition home or self-care (01) | DRG 253 ==
LOC: EDH 12:00 → EDHIP 16:30 → 3CH 23:08 → 2DH 03-11 09:42
PROVIDERS: ADMIT Internal Medicine; ATTEND Internal Medicine
PROC: 30233N1 Transfusion of Nonautologous Red Blood Cells into Peripheral Vein, Percutaneous Approach (ICD-10-PCS; 2023-03-04)
PROC: 04QK0ZZ Repair Right Femoral Artery, Open Approach (ICD-10-PCS; principal; 2023-03-11 08:39)
DX: I21.4 Non-ST elevation (NSTEMI) myocardial infarction (principal); D62 Acute posthemorrhagic anemia; I72.4 Aneurysm of artery of lower extremity; Z20.822 Contact with and (suspected) exposure to COVID-19; I12.9 Hypertensive chronic kidney disease with stage 1 through stage 4 chronic kidney disease, or unspecified chronic kidney disease; N18.2 Chronic kidney disease, stage 2 (mild); E11.22 Type 2 diabetes mellitus with diabetic chronic kidney disease; E11.65 Type 2 diabetes mellitus with hyperglycemia; E78.00 Pure hypercholesterolemia, unspecified; E87.70 Fluid overload, unspecified; I25.10 Atherosclerotic heart disease of native coronary artery without angina pectoris; I25.2 Old myocardial infarction; I72.8 Aneurysm of other specified arteries; S30.1XXA Contusion of abdominal wall, initial encounter; X58.XXXA Exposure to other specified factors, initial encounter; Y93.89 Activity, other specified; Y92.89 Other specified places as the place of occurrence of the external cause; Y99.8 Other external cause status; Z79.899 Other long term (current) drug therapy; Z95.5 Presence of coronary angioplasty implant and graft
CPT/HCPCS: 36415; 71045; 76882; 80048; 80053; 80061; 81001; 82306; 82550; 82948; 83036; 83735; 83874; 84484; 84703; 85025; 85027; 85610; 85730; 86850; 86900; 86901; 86923; 87088; 87635; 93005; G0378; J0690; J1644; J1650; J1815; J2001; J2175; J2250; J2270; J2371; J2405; J2704; J2710; J2720; J3010; J3370; J3475; J3490; J7030; P9016; P9045; A4216; A4222; A4223

== ENCOUNTER 2023-04-01 19:02 | Inpatient (IN) | payer OTHER ==
[~2023-04-01] VITALS: Ht 154.9 cm; Wt 51.6 kg
[~2023-04-01 19:02] MED LIST changes: +ASPI-1197 PO; +CLOP75TA32 PO; +ISOS60TA77 PO; -MAGN250C PO; -MECO10005 PO; +METO-391 PO; +NITR0.4T50 SL; -VITA-300 PO
[2023-04-01] MEDS ORDERED: 0.9%NACL 1000ML 2,500 ML IV ONE (19:30)
[2023-04-01 19:37] LABS: BASOPHILS # (AUTO) 0.02 K/uL (0.00-0.20); BASOPHILS % (AUTO) 0.3 % (0.0-5.0); EOSINOPHILS # (AUTO) 0.11 K/uL (0.00-0.70); EOSINOPHILS % (AUTO) 1.8 % (0.0-8.0); HEMATOCRIT 23.4 % (36-48); IMMATURE GRANULOCYTE ABSOLUTE 0.02 K/uL (0-1); LYMPHOCYTES # (AUTO) 1.5 K/uL (1.0-4.8); LYMPHOCYTES % (AUTO) 24.8 % (21.0-51.0); MEAN CORPUSCULAR HEMOGLOBIN 30.1 pg (27.0-33.0); MEAN CORPUSCULAR HGB CONC 36.3 g/dL (32.0-36.0); MONOCYTES # (AUTO) 0.6 K/uL (0.1-1.0); MONOCYTES % (AUTO) 9.2 % (3.0-13.0); NEUTROPHILS # (AUTO) 3.9 K/uL (1.8-7.7); NEUTROPHILS % (AUTO) 63.6 % (40.0-77.0); PLATELET COUNT (AUTO) 267 K/uL (130-400); RED BLOOD CELL COUNT(AUTO) 2.82 MIL/uL (4.00-5.50); RED CELL DISTRIBUTION WIDTH 13.2 % (11.0-15.5); WHITE BLOOD COUNT (AUTO) 6.1 K/uL (4.8-10.8)
[2023-04-01 19:47] LABS: CREATININE 1.6 mg/dL (0.5-1.5); POTASSIUM 3.1 mmol/L (3.5-5.1)
[2023-04-01 19:51] LABS: ALBUMIN 3.1 g/dL (3.5-5.0); BILIRUBIN,TOTAL 0.4 mg/dL (0.2-1.0); TOTAL PROTEIN, SERUM 6.8 g/dL (6.0-8.3)
[2023-04-01 20:01] LABS: SARS-CoV-2, RNA, NAAT NEGATIVE SARS CoV-2 (NEGATIVE)
[2023-04-01 20:09] LABS: INFLUENZA TYPE A Negative For Type A (NEGATIVE); INFLUENZA TYPE B Negative For Type B (NEGATIVE)
[2023-04-01] MEDS ORDERED: POTASSIUM CHLORIDE 10% ELIXIR 20 MEQ/15 ML UDCUP PO ONE (20:30)
[2023-04-01] MEDS: 0.9%NACL 1000ML 1,000 ML IV SCH (21:00)
[2023-04-01 21:03] LABS: APPEARANCE,URINE CLOUDY (CLEAR); BILIRUBIN,URINE NEGATIVE (NEGATIVE); COLOR,URINE YELLOW (YELLOW); GLUCOSE, URINE (UA) 70 mg/dL (NEGATIVE); KETONES,URINE NEGATIVE (NEGATIVE); LEUKOCYTE ESTERASE ,URINE 75 Leu/uL (NEGATIVE); NITRATE,URINE NEGATIVE (NEGATIVE); OCCULT BLOOD,URINE SMALL (NEGATIVE); PH,URINE 5.5 (5.0-8.0); PROTEIN,URINE 300 mg/dL (NEGATIVE); UROBILINOGEN,URINE 0.2 mg/dL (0.2-1.0)
[2023-04-01 21:11] LABS: ADD UA MICROSCOPIC YES
[2023-04-01 21:21] LABS: BACTERIA,URINE RARE /HPF (None Seen); MUCUS,URINE RARE LPF (None Seen); OTHER CASTS, URINE 3 /LPF (None Seen); SQUAMOUS EPITHELIAL CELL,UR RARE /HPF (0-2)
[2023-04-01] MEDS: CEFTRIAXONE 1G VIAL IVPB SCH (22:12)
[2023-04-01 23:00] VITALS: BP 174/88; PULSE 95; RESP 18
[2023-04-02] VITALS (8 sets, daily range): BP systolic 123–206; BP diastolic 63–98; PULSE 79–99; RESP 17–20; O2SAT 100
[2023-04-02] MEDS: 0.9%NACL 1000ML 1,000 ML IV SCH ×3 (04:57→20:15)
[2023-04-02 05:34] LABS: BASOPHILS # (AUTO) 0.02 K/uL (0.00-0.20); BASOPHILS % (AUTO) 0.4 % (0.0-5.0); EOSINOPHILS # (AUTO) 0.17 K/uL (0.00-0.70); EOSINOPHILS % (AUTO) 3.1 % (0.0-8.0); IMMATURE GRANULOCYTE ABSOLUTE 0.02 K/uL (0-1); LYMPHOCYTES # (AUTO) 1.6 K/uL (1.0-4.8); LYMPHOCYTES % (AUTO) 29.3 % (21.0-51.0); MEAN CORPUSCULAR HEMOGLOBIN 30.9 pg (27.0-33.0); MEAN CORPUSCULAR HGB CONC 36.4 g/dL (32.0-36.0); MEAN CORPUSCULAR VOLUME 84.9 fL (79-99); MONOCYTES # (AUTO) 0.5 K/uL (0.1-1.0); MONOCYTES % (AUTO) 9.8 % (3.0-13.0); NEUTROPHILS # (AUTO) 3.2 K/uL (1.8-7.7); PLATELET COUNT (AUTO) 224 K/uL (130-400); RED BLOOD CELL COUNT(AUTO) 2.59 MIL/uL (4.00-5.50); RED CELL DISTRIBUTION WIDTH 13.2 % (11.0-15.5); WHITE BLOOD COUNT (AUTO) 5.5 K/uL (4.8-10.8)
[2023-04-02 06:00] LABS: ALBUMIN 2.7 g/dL (3.5-5.0); BILIRUBIN,TOTAL 0.4 mg/dL (0.2-1.0); CREATININE 1.3 mg/dL (0.5-1.5); POTASSIUM 3.3 mmol/L (3.5-5.1)
[2023-04-02] MEDS: ENOXAPARIN SODIUM 30 MG/0.3 ML SQ SCH (09:49)
[2023-04-02] MEDS ORDERED: POTASSIUM CHLORIDE 10% ELIXIR 20 MEQ/15 ML UDCUP PO PRN (12:00)
[2023-04-02] MEDS ORDERED: POTASSIUM CHLORIDE 20MEQ/100ML 100 ML IV PRN (12:00)
[2023-04-02] MEDS: KCL 20 MEQ ERTAB PO PRN ×3 (13:24→22:17)
[2023-04-02] MEDS ORDERED: HYDRALAZINE 25MG TABLET PO SCH (19:30)
[2023-04-02] MEDS: CEFTRIAXONE 1G VIAL IVPB SCH (20:14)
[2023-04-02] MEDS: GABAPENTIN 100 MG CAPSULE PO SCH (22:16)
[2023-04-02] MEDS: ACETAMINOPHEN 325 MG TAB PO PRN (22:17)
[2023-04-02] MEDS ORDERED: 0.9%NACL 1000ML 1,000 ML IV SCH (22:30)
[2023-04-03] VITALS (10 sets, daily range): BP systolic 145–176; BP diastolic 75–97; PULSE 78–95; RESP 16–20; O2SAT 98–100
[2023-04-03] MEDS ORDERED: GABAPENTIN 100 MG CAPSULE PO SCH (09:00)
[2023-04-03] MEDS: GABAPENTIN 100 MG CAPSULE PO SCH ×2 (09:55→19:22)
[2023-04-03] MEDS: ENOXAPARIN SODIUM 30 MG/0.3 ML SQ SCH (09:56)
[2023-04-03] MEDS: METOPROLOL SUCCINATE 50 MG TAB.SR.24H PO SCH ×2 (09:56→19:21)
[2023-04-03] MEDS ORDERED: IRON SUCROSE COMPLEX 300 MG in 0.9% NACL 250ML IV SCH (11:30)
[2023-04-03] MEDS: CLOPIDOGREL 75MG TAB PO SCH (11:39)
[2023-04-03] MEDS: ASPIRIN 81 MG EC TAB PO SCH (11:40)
[2023-04-03] MEDS: CLONIDINE HCL 0.1 MG TABLET PO PRN (11:42)
[2023-04-03] MEDS ORDERED: COMPOUND IV MISC 1 EACH IVSOLN MISC PRN (13:00)
[2023-04-03] MEDS: IRON SUCROSE COMPLEX 300 MG in 0.9% NACL 250ML 250 ML IV SCH (14:32)
[2023-04-03] MEDS: CEFTRIAXONE 1G VIAL IVPB SCH (19:21)
[2023-04-03] MEDS: ACETAMINOPHEN 325 MG TAB PO PRN (20:21)
[2023-04-03] MEDS: LISINOPRIL 5 MG TABLET PO SCH (20:21)
[2023-04-04] VITALS (10 sets, daily range): BP systolic 106–184; BP diastolic 67–103; PULSE 77–84; RESP 16–20; O2SAT 98–100
[2023-04-04 05:28] LABS: HEMATOCRIT 23.5 % (36-48); MEAN CORPUSCULAR HEMOGLOBIN 29.9 pg (27.0-33.0); MEAN CORPUSCULAR HGB CONC 35.7 g/dL (32.0-36.0); MEAN CORPUSCULAR VOLUME 83.6 fL (79-99); RED BLOOD CELL COUNT(AUTO) 2.81 MIL/uL (4.00-5.50); RED CELL DISTRIBUTION WIDTH 12.8 % (11.0-15.5); WHITE BLOOD COUNT (AUTO) 5.7 K/uL (4.8-10.8)
[2023-04-04] MEDS: GABAPENTIN 100 MG CAPSULE PO SCH ×2 (08:50→19:20)
[2023-04-04] MEDS: ASPIRIN 81 MG EC TAB PO SCH (08:50)
[2023-04-04] MEDS: METOPROLOL SUCCINATE 50 MG TAB.SR.24H PO SCH ×2 (08:50→19:20)
[2023-04-04] MEDS: LISINOPRIL 5 MG TABLET PO SCH ×2 (08:51→19:21)
[2023-04-04] MEDS: CLOPIDOGREL 75MG TAB PO SCH (08:51)
[2023-04-04] MEDS: ENOXAPARIN SODIUM 30 MG/0.3 ML SQ SCH (08:53)
[2023-04-04] MEDS: IRON SUCROSE COMPLEX 300 MG in 0.9% NACL 250ML 250 ML IV SCH (13:15)
[2023-04-04] MEDS: CLONIDINE HCL 0.1 MG TABLET PO PRN (15:41)
[2023-04-04] MEDS: CEFTRIAXONE 1G VIAL IVPB SCH (19:20)
[2023-04-04] MEDS: ACETAMINOPHEN WITH CODEINE 1 TAB TAB PO PRN (19:21)
[2023-04-05] VITALS (7 sets, daily range): BP systolic 132–190; BP diastolic 64–85; PULSE 73–81; RESP 16–20; O2SAT 97–99
[2023-04-05 08:32] LABS: HEMATOCRIT 25.7 % (36-48); MEAN CORPUSCULAR HGB CONC 35.8 g/dL (32.0-36.0); MEAN CORPUSCULAR VOLUME 83.7 fL (79-99); RED BLOOD CELL COUNT(AUTO) 3.07 MIL/uL (4.00-5.50); RED CELL DISTRIBUTION WIDTH 13.2 % (11.0-15.5); WHITE BLOOD COUNT (AUTO) 4.2 K/uL (4.8-10.8)
[2023-04-05 09:00] LABS: ALBUMIN 3.2 g/dL (3.5-5.0); BILIRUBIN,TOTAL 0.3 mg/dL (0.2-1.0); CREATININE 1.2 mg/dL (0.5-1.5); POTASSIUM 3.8 mmol/L (3.5-5.1)
[2023-04-05] MEDS: ATORVASTATIN 40 MG TABLET PO SCH (09:06)
[2023-04-05] MEDS: CLOPIDOGREL 75MG TAB PO SCH (09:06)
[2023-04-05] MEDS: METOPROLOL SUCCINATE 50 MG TAB.SR.24H PO SCH ×2 (09:06→20:16)
[2023-04-05] MEDS: ASPIRIN 81 MG EC TAB PO SCH (09:07)
[2023-04-05] MEDS: GABAPENTIN 100 MG CAPSULE PO SCH ×2 (09:07→20:16)
[2023-04-05] MEDS: LISINOPRIL 5 MG TABLET PO SCH ×2 (09:07→20:16)
[2023-04-05] MEDS: ENOXAPARIN SODIUM 30 MG/0.3 ML SQ SCH (09:08)
[2023-04-05] MEDS ORDERED: SOLU-MEDROL 125MG VIAL IVP PRN (11:30)
[2023-04-05] MEDS: PREDNISONE 20 MG TABLET PO SCH ×3 (12:44→22:06)
[2023-04-05] MEDS: MONTELUKAST SODIUM 10 MG TAB PO SCH (12:44)
[2023-04-05] MEDS: CLONIDINE HCL 0.1 MG TABLET PO PRN (16:59)
[2023-04-05] MEDS: ACETAMINOPHEN WITH CODEINE 1 TAB TAB PO PRN (20:15)
[2023-04-05] MEDS: CEFTRIAXONE 1G VIAL IVPB SCH (20:16)
[2023-04-06] VITALS (40 sets, daily range): BP systolic 102–237; BP diastolic 61–106; PULSE 79–100; RESP 8–19; O2SAT 98–100
[2023-04-06] MEDS: PREDNISONE 20 MG TABLET PO SCH (05:15)
[2023-04-06 05:31] LABS: MEAN CORPUSCULAR HEMOGLOBIN 30.6 pg (27.0-33.0); MEAN CORPUSCULAR HGB CONC 36.7 g/dL (32.0-36.0); MEAN CORPUSCULAR VOLUME 83.3 fL (79-99); RED BLOOD CELL COUNT(AUTO) 2.88 MIL/uL (4.00-5.50); RED CELL DISTRIBUTION WIDTH 12.7 % (11.0-15.5); WHITE BLOOD COUNT (AUTO) 5.1 K/uL (4.8-10.8)
[2023-04-06 05:40] LABS: INR 0.95 (0.85-1.15); PROTHROMBIN TIME 11.1 SEC (9.6-11.6)
[2023-04-06 05:41] LABS: PARTIAL THROMBOPLASTIN TIME 25.6 SEC (26.3-35.5)
[2023-04-06 05:50] LABS: CREATININE 1.2 mg/dL (0.5-1.5); POTASSIUM 4.2 mmol/L (3.5-5.1)
[2023-04-06] MEDS ORDERED: LIDOCAINE HCL 400MG/20ML VIAL ONE (07:07)
[2023-04-06] MEDS ORDERED: MIDAZOLAM HCL 1 MG/ML 2ML VIAL ONE ×3 (07:07→08:18)
[2023-04-06] MEDS ORDERED: FENTANYL CITRATE PF 50 MCG/1 ML 2ML VIAL ONE ×2 (07:08→08:18)
[2023-04-06] MEDS ORDERED: NITROGLYCERIN 50MG VIAL ONE (07:08)
[2023-04-06] MEDS ORDERED: BIVALIRUDIN 250 MG/VIAL IV ONE (07:10)
[2023-04-06] MEDS ORDERED: NICARDIPINE 25MG INJ IV ONE (07:18)
[2023-04-06] MEDS ORDERED: HEPARIN 10,000 UNIT/10ML (1,000 UNIT/ML) VIAL ONE (07:39)
[2023-04-06] MEDS ORDERED: 0.9%NACL 1000ML 1,000 ML IV SCH (08:30)
[2023-04-06] MEDS ORDERED: CLOPIDOGREL 300MG TAB ONE (08:34)
[2023-04-06] MEDS ORDERED: DiphenhydrAMINE HCL 50 MG/ML VIAL ONE (08:46)
[2023-04-06] MEDS: ENOXAPARIN SODIUM 30 MG/0.3 ML SQ SCH (09:00)
[2023-04-06] MEDS: CLOPIDOGREL 75MG TAB PO SCH (09:00)
[2023-04-06] MEDS ORDERED: HYDRALAZINE 20MG/ML VIAL ONE (09:29)
[2023-04-06] MEDS ORDERED: LABETALOL 20MG VIAL IV PRN (09:30)
[2023-04-06] MEDS ORDERED: HYDRALAZINE 20MG/ML VIAL IV PRN (09:30)
[2023-04-06] MEDS: MONTELUKAST SODIUM 10 MG TAB PO SCH (12:24)
[2023-04-06] MEDS: GABAPENTIN 100 MG CAPSULE PO SCH ×2 (12:24→21:41)
[2023-04-06] MEDS: ATORVASTATIN 40 MG TABLET PO SCH (12:24)
[2023-04-06] MEDS: METOPROLOL SUCCINATE 50 MG TAB.SR.24H PO SCH ×2 (12:24→21:41)
[2023-04-06] MEDS: LISINOPRIL 5 MG TABLET PO SCH ×2 (12:24→21:41)
[2023-04-06] MEDS: ASPIRIN 81 MG EC TAB PO SCH (12:25)
[2023-04-06 13:30] LABS: HEMATOCRIT 25.4 % (36-48); MEAN CORPUSCULAR HEMOGLOBIN 30.1 pg (27.0-33.0); MEAN CORPUSCULAR HGB CONC 35.8 g/dL (32.0-36.0); MEAN CORPUSCULAR VOLUME 84.1 fL (79-99); RED BLOOD CELL COUNT(AUTO) 3.02 MIL/uL (4.00-5.50); RED CELL DISTRIBUTION WIDTH 13.2 % (11.0-15.5); WHITE BLOOD COUNT (AUTO) 5.7 K/uL (4.8-10.8)
[2023-04-06] MEDS ORDERED: IOPAMIDOL-370 100 ML VIAL IV ONE (14:02)
[2023-04-06] MEDS ORDERED: ISOVUE-370 50ML VIAL IV ONE (14:02)
[2023-04-06] MEDS: CEFTRIAXONE 1G VIAL IVPB SCH (21:40)
[2023-04-07] VITALS (8 sets, daily range): BP systolic 102–161; BP diastolic 64–78; PULSE 78–100; RESP 16–18; O2SAT 98–100
[2023-04-07 08:09] LABS: MEAN CORPUSCULAR HEMOGLOBIN 30.3 pg (27.0-33.0); MEAN CORPUSCULAR HGB CONC 35.3 g/dL (32.0-36.0); MEAN CORPUSCULAR VOLUME 85.7 fL (79-99); PLATELET COUNT (AUTO) 195 K/uL (130-400); RED BLOOD CELL COUNT(AUTO) 2.38 MIL/uL (4.00-5.50); RED CELL DISTRIBUTION WIDTH 13.2 % (11.0-15.5); WHITE BLOOD COUNT (AUTO) 9.1 K/uL (4.8-10.8)
[2023-04-07] MEDS: ASPIRIN 81 MG EC TAB PO SCH (08:09)
[2023-04-07] MEDS: ENOXAPARIN SODIUM 30 MG/0.3 ML SQ SCH (08:09)
[2023-04-07] MEDS: GABAPENTIN 100 MG CAPSULE PO SCH ×2 (08:10→19:58)
[2023-04-07] MEDS: METOPROLOL SUCCINATE 50 MG TAB.SR.24H PO SCH ×2 (08:10→19:58)
[2023-04-07] MEDS: CLOPIDOGREL 75MG TAB PO SCH (08:10)
[2023-04-07] MEDS: ATORVASTATIN 40 MG TABLET PO SCH (08:10)
[2023-04-07] MEDS: LISINOPRIL 5 MG TABLET PO SCH ×2 (08:10→19:58)
[2023-04-07] MEDS: MONTELUKAST SODIUM 10 MG TAB PO SCH (08:10)
[2023-04-07 08:21] LABS: CREATININE 1.2 mg/dL (0.5-1.5); POTASSIUM 3.6 mmol/L (3.5-5.1)
[2023-04-07] MEDS ORDERED: DIPHENHYDRAMINE HCL 25 MG CAPSULE PO ONE (08:30)
[2023-04-07 08:55] LABS: HEMATOCRIT 20.4 % (36-48)
[2023-04-07 09:16] LABS: EOSINOPHILS % (MANUAL) 1 % (1-6); LYMPHOCYTES % (MANUAL) 15 % (22-44); MAN.DIFF COMMENT-IMPRESSION MANUAL DIFFERENTIAL; MONOCYTES % (MANUAL) 3 % (2-9); PLATELET MORPHOLOGY COMMENT ADEQUATE; SEGMENTED NEUTROPHILS % 81 % (40-70); TOTAL CELLS COUNTED 100
[2023-04-07] MEDS: CEFTRIAXONE 1G VIAL IVPB SCH (19:56)
[2023-04-08 00:25] VITALS: BP 110/58; PULSE 92; RESP 18
[2023-04-08 03:25] VITALS: BP 140/75; PULSE 88; RESP 18
[2023-04-08 05:05] LABS: BASOPHILS # (AUTO) 0.01 K/uL (0.00-0.20); BASOPHILS % (AUTO) 0.1 % (0.0-5.0); EOSINOPHILS # (AUTO) 0.46 K/uL (0.00-0.70); EOSINOPHILS % (AUTO) 4.6 % (0.0-8.0); IMMATURE GRANULOCYTE ABSOLUTE 0.04 K/uL (0-1); LYMPHOCYTES # (AUTO) 1.1 K/uL (1.0-4.8); LYMPHOCYTES % (AUTO) 11.3 % (21.0-51.0); MEAN CORPUSCULAR HEMOGLOBIN 30.3 pg (27.0-33.0); MEAN CORPUSCULAR HGB CONC 35.4 g/dL (32.0-36.0); MEAN CORPUSCULAR VOLUME 85.7 fL (79-99); MONOCYTES # (AUTO) 0.9 K/uL (0.1-1.0); MONOCYTES % (AUTO) 8.5 % (3.0-13.0); NEUTROPHILS # (AUTO) 7.5 K/uL (1.8-7.7); NEUTROPHILS % (AUTO) 75.1 % (40.0-77.0); PLATELET COUNT (AUTO) 197 K/uL (130-400); RED BLOOD CELL COUNT(AUTO) 2.44 MIL/uL (4.00-5.50); RED CELL DISTRIBUTION WIDTH 13.4 % (11.0-15.5)
[2023-04-08 05:07] LABS: CREATININE 1.1 mg/dL (0.5-1.5); POTASSIUM 3.7 mmol/L (3.5-5.1)
[2023-04-08 05:29] LABS: HEMATOCRIT 20.9 % (36-48)
[2023-04-08] MEDS: KCL 20 MEQ ERTAB PO PRN (05:57)
[2023-04-08 07:00] VITALS: BP 135/74; PULSE 91; RESP 16
[2023-04-08 07:40] VITALS: O2SAT 100
[2023-04-08] MEDS: MONTELUKAST SODIUM 10 MG TAB PO SCH (08:40)
[2023-04-08] MEDS: GABAPENTIN 100 MG CAPSULE PO SCH (08:40)
[2023-04-08] MEDS: ENOXAPARIN SODIUM 30 MG/0.3 ML SQ SCH (08:40)
[2023-04-08] MEDS: ATORVASTATIN 40 MG TABLET PO SCH (08:40)
[2023-04-08] MEDS: ASPIRIN 81 MG EC TAB PO SCH (08:40)
[2023-04-08] MEDS: METOPROLOL SUCCINATE 50 MG TAB.SR.24H PO SCH (08:40)
[2023-04-08] MEDS: CLOPIDOGREL 75MG TAB PO SCH (08:41)
[2023-04-08] MEDS: LISINOPRIL 5 MG TABLET PO SCH (08:41)
[2023-04-08 11:00] VITALS: BP 154/83; PULSE 87; RESP 16
[2023-04-08 16:00] VITALS: BP 161/82; PULSE 98; RESP 18
[2023-04-08 16:28] LABS: BASOPHILS # (AUTO) 0.01 K/uL (0.00-0.20); BASOPHILS % (AUTO) 0.1 % (0.0-5.0); EOSINOPHILS # (AUTO) 0.54 K/uL (0.00-0.70); EOSINOPHILS % (AUTO) 5.5 % (0.0-8.0); HEMATOCRIT 27.3 % (36-48); IMMATURE GRANULOCYTE ABSOLUTE 0.05 K/uL (0-1); LYMPHOCYTES % (AUTO) 10.2 % (21.0-51.0); MEAN CORPUSCULAR HEMOGLOBIN 29.5 pg (27.0-33.0); MEAN CORPUSCULAR HGB CONC 35.5 g/dL (32.0-36.0); MONOCYTES # (AUTO) 0.9 K/uL (0.1-1.0); MONOCYTES % (AUTO) 9.6 % (3.0-13.0); NEUTROPHILS # (AUTO) 7.3 K/uL (1.8-7.7); NEUTROPHILS % (AUTO) 74.1 % (40.0-77.0); PLATELET COUNT (AUTO) 178 K/uL (130-400); RED BLOOD CELL COUNT(AUTO) 3.29 MIL/uL (4.00-5.50); RED CELL DISTRIBUTION WIDTH 14.6 % (11.0-15.5); WHITE BLOOD COUNT (AUTO) 9.8 K/uL (4.8-10.8)
[2023-04-09] MEDS ORDERED: ACET-2079 PO (09:29)
== END 2023-04-08 19:50 | disposition home or self-care (01) | DRG 249 ==
LOC: EDH 19:02 → EDHIP 20:41 → 3BH 22:25 → 2BH 04-06 08:15 → 2DH 04-06 17:31
PROVIDERS: ADMIT Internal Medicine; ATTEND Internal Medicine
PROC: 4A023N7 Measurement of Cardiac Sampling and Pressure, Left Heart, Percutaneous Approach (ICD-10-PCS; principal; 2023-04-06)
PROC: 02703DZ Dilation of Coronary Artery, One Artery with Intraluminal Device, Percutaneous Approach (ICD-10-PCS; 2023-04-06)
PROC: B2111ZZ Fluoroscopy of Multiple Coronary Arteries using Low Osmolar Contrast (ICD-10-PCS; 2023-04-06)
PROC: 30233N1 Transfusion of Nonautologous Red Blood Cells into Peripheral Vein, Percutaneous Approach (ICD-10-PCS; 2023-04-08)
DX: I25.10 Atherosclerotic heart disease of native coronary artery without angina pectoris (principal); E86.0 Dehydration; D64.9 Anemia, unspecified; Z20.822 Contact with and (suspected) exposure to COVID-19; I10 Essential (primary) hypertension; I72.8 Aneurysm of other specified arteries; I95.2 Hypotension due to drugs; E11.9 Type 2 diabetes mellitus without complications; E78.00 Pure hypercholesterolemia, unspecified; I72.4 Aneurysm of artery of lower extremity; G62.9 Polyneuropathy, unspecified; Z95.5 Presence of coronary angioplasty implant and graft; I25.2 Old myocardial infarction
CPT/HCPCS: 36415; 71045; 80048; 80053; 81001; 82550; 82948; 83605; 83874; 83880; 84132; 84484; 85025; 85027; 85378; 85610; 85730; 86850; 86900; 86901; 86923; 87040; 87088; 87635; 87804; 92978; 93005; 93306; 93356; 93454; 97039; 99156; 99157; C1769; C1887; C1894; C9600; C9803; G0378; J0360; J0583; J0696; J1200; J1644; J1650; J1756; J2250; J2930; J3010; J3490; J7030; J7050; P9016; Q0163; Q9967; C1753; C1874

== ENCOUNTER 2023-04-09 04:43 | Inpatient (IN) | payer OTHER ==
[~2023-04-09] VITALS: Ht 154.9 cm; Wt 54.0 kg
[2023-04-09] VITALS (14 sets, daily range): BP systolic 128–199; BP diastolic 60–91; PULSE 89–114; RESP 16–20; O2SAT 93–99
[~2023-04-09 04:43] MED LIST changes: -DICL100G61 TP
[2023-04-09 05:56] LABS: BASOPHILS # (AUTO) 0.01 K/uL (0.00-0.20); BASOPHILS % (AUTO) 0.1 % (0.0-5.0); EOSINOPHILS # (AUTO) 0.52 K/uL (0.00-0.70); EOSINOPHILS % (AUTO) 5.4 % (0.0-8.0); IMMATURE GRANULOCYTE ABSOLUTE 0.03 K/uL (0-1); LYMPHOCYTES % (AUTO) 10.1 % (21.0-51.0); MEAN CORPUSCULAR HEMOGLOBIN 29.2 pg (27.0-33.0); MEAN CORPUSCULAR HGB CONC 35.2 g/dL (32.0-36.0); MEAN CORPUSCULAR VOLUME 83.1 fL (79-99); MONOCYTES # (AUTO) 0.8 K/uL (0.1-1.0); MONOCYTES % (AUTO) 8.4 % (3.0-13.0); NEUTROPHILS # (AUTO) 7.2 K/uL (1.8-7.7); NEUTROPHILS % (AUTO) 75.7 % (40.0-77.0); PLATELET COUNT (AUTO) 174 K/uL (130-400); RED BLOOD CELL COUNT(AUTO) 3.01 MIL/uL (4.00-5.50); RED CELL DISTRIBUTION WIDTH 14.5 % (11.0-15.5); WHITE BLOOD COUNT (AUTO) 9.6 K/uL (4.8-10.8)
[2023-04-09 06:13] LABS: ALBUMIN 2.8 g/dL (3.5-5.0); BILIRUBIN,TOTAL 0.4 mg/dL (0.2-1.0); CREATININE 0.8 mg/dL (0.5-1.5); POTASSIUM 3.8 mmol/L (3.5-5.1); TOTAL PROTEIN, SERUM 6.2 g/dL (6.0-8.3)
[2023-04-09] MEDS ORDERED: ACET-2079 PO (09:29)
[2023-04-09] MEDS ORDERED: THROMBIN-JMI 5000 UNIT/VIAL TP ONE (10:54)
[2023-04-09] MEDS ORDERED: NITROGLYCERIN 0.4 MG SL TAB SL PRN (13:00)
[2023-04-09 13:38] LABS: HEMATOCRIT 24.7 % (36-48)
[2023-04-09] MEDS ORDERED: METOPROLOL SUCCINATE 50 MG TAB.SR.24H PO ONE (14:06)
[2023-04-09] MEDS ORDERED: ISOSORBIDE MONO 60MG SR TAB PO ONE (14:07)
[2023-04-09] MEDS: METFORMIN HCL 500 MG TABLET PO SCH (17:12)
[2023-04-09 18:24] LABS: HEMATOCRIT 24.7 % (36-48)
[2023-04-09] MEDS: ATORVASTATIN 40 MG TABLET PO SCH (20:38)
[2023-04-09] MEDS: GABAPENTIN 100 MG CAPSULE PO SCH (20:38)
[2023-04-09] MEDS: METOPROLOL SUCCINATE 50 MG TAB.SR.24H PO SCH (20:38)
[2023-04-09] MEDS: DiphenhydrAMINE HCL 50 MG/ML VIAL IV PRN (20:46)
[2023-04-10 01:11] LABS: HEMATOCRIT 21.7 % (36-48)
[2023-04-10 04:29] LABS: HEMATOCRIT 21.4 % (36-48); MEAN CORPUSCULAR HEMOGLOBIN 29.2 pg (27.0-33.0); MEAN CORPUSCULAR VOLUME 83.3 fL (79-99); RED BLOOD CELL COUNT(AUTO) 2.57 MIL/uL (4.00-5.50); RED CELL DISTRIBUTION WIDTH 14.7 % (11.0-15.5); WHITE BLOOD COUNT (AUTO) 8.1 K/uL (4.8-10.8)
[2023-04-10 04:46] VITALS: BP 119/71; PULSE 96; RESP 18
[2023-04-10 04:46] LABS: ALBUMIN 2.6 g/dL (3.5-5.0); BILIRUBIN,TOTAL 0.4 mg/dL (0.2-1.0); POTASSIUM 3.6 mmol/L (3.5-5.1); TOTAL PROTEIN, SERUM 5.7 g/dL (6.0-8.3)
[2023-04-10 07:30] VITALS: BP 140/79; PULSE 95; RESP 19
[2023-04-10 07:55] VITALS: O2SAT 97
[2023-04-10] MEDS: ASPIRIN 81MG CHEW TAB PO SCH (08:37)
[2023-04-10] MEDS: LISINOPRIL 10 MG TABLET PO SCH (08:37)
[2023-04-10] MEDS: METFORMIN HCL 500 MG TABLET PO SCH ×2 (08:37→17:02)
[2023-04-10] MEDS: GABAPENTIN 100 MG CAPSULE PO SCH ×2 (08:38→20:51)
[2023-04-10] MEDS: ISOSORBIDE MONO 60MG SR TAB PO SCH (08:38)
[2023-04-10] MEDS: FINERENONE 20 MG PO SCH (08:38)
[2023-04-10] MEDS: METOPROLOL SUCCINATE 50 MG TAB.SR.24H PO SCH ×2 (08:38→20:51)
[2023-04-10] MEDS: DiphenhydrAMINE HCL 50 MG/ML VIAL IV PRN ×2 (08:42→20:51)
[2023-04-10] MEDS ORDERED: NON-FORMULARY MEDICATION 1 EACH (Rosuvastatin Calcium 20 MG) PO SCH (09:00)
[2023-04-10 11:05] VITALS: BP 134/75; PULSE 84; RESP 20
[2023-04-10 15:30] VITALS: BP 159/77; PULSE 82; RESP 20
[2023-04-10 20:00] VITALS: BP 168/82; PULSE 93; RESP 18; O2SAT 98
[2023-04-10] MEDS: ATORVASTATIN 40 MG TABLET PO SCH (20:51)
[2023-04-10 23:40] LABS: HEMATOCRIT 28.9 % (36-48)
[2023-04-11] VITALS (8 sets, daily range): BP systolic 151–173; BP diastolic 79–92; PULSE 86–104; RESP 16–20; O2SAT 98
[2023-04-11] MEDS ORDERED: HYDRALAZINE 20MG/ML VIAL IM ONE (00:30)
[2023-04-11] MEDS ORDERED: SOLU-MEDROL 40MG VIAL IVP ONE (00:30)
[2023-04-11 05:45] LABS: HEMATOCRIT 27.9 % (36-48)
[2023-04-11] MEDS: METFORMIN HCL 500 MG TABLET PO SCH ×2 (08:00→19:47)
[2023-04-11] MEDS: FINERENONE 20 MG PO SCH (09:00)
[2023-04-11] MEDS: GABAPENTIN 100 MG CAPSULE PO SCH ×2 (10:12→19:43)
[2023-04-11] MEDS: METOPROLOL SUCCINATE 50 MG TAB.SR.24H PO SCH ×2 (10:12→19:43)
[2023-04-11] MEDS: ASPIRIN 81MG CHEW TAB PO SCH (10:12)
[2023-04-11] MEDS: ISOSORBIDE MONO 60MG SR TAB PO SCH (10:12)
[2023-04-11] MEDS: LISINOPRIL 10 MG TABLET PO SCH (10:13)
[2023-04-11 11:23] LABS: HEMATOCRIT 30.7 % (36-48)
[2023-04-11] MEDS: SOLU-MEDROL 40MG VIAL IVP SCH ×2 (16:58→22:00)
[2023-04-11 17:26] LABS: HEMATOCRIT 31.7 % (36-48)
[2023-04-11] MEDS: ATORVASTATIN 40 MG TABLET PO SCH (19:43)
[2023-04-11] MEDS: DiphenhydrAMINE HCL 50 MG/ML VIAL IV PRN (19:44)
[2023-04-12 00:23] VITALS: BP 175/86; PULSE 88; RESP 18
[2023-04-12 04:43] VITALS: BP 141/76; PULSE 104; RESP 16
[2023-04-12 04:57] LABS: HEMATOCRIT 27.7 % (36-48); MEAN CORPUSCULAR HEMOGLOBIN 29.6 pg (27.0-33.0); MEAN CORPUSCULAR HGB CONC 36.1 g/dL (32.0-36.0); RED BLOOD CELL COUNT(AUTO) 3.38 MIL/uL (4.00-5.50); RED CELL DISTRIBUTION WIDTH 14.5 % (11.0-15.5); WHITE BLOOD COUNT (AUTO) 6.6 K/uL (4.8-10.8)
[2023-04-12 05:20] LABS: ALBUMIN 2.9 g/dL (3.5-5.0); POTASSIUM 4.1 mmol/L (3.5-5.1)
[2023-04-12 05:23] LABS: BILIRUBIN,TOTAL 0.8 mg/dL (0.2-1.0); TOTAL PROTEIN, SERUM 6.6 g/dL (6.0-8.3)
[2023-04-12] MEDS: SOLU-MEDROL 40MG VIAL IVP SCH (05:38)
[2023-04-12 08:00] VITALS: BP 149/84; PULSE 98; RESP 18; O2SAT 98
[2023-04-12] MEDS: METFORMIN HCL 500 MG TABLET PO SCH (08:37)
[2023-04-12] MEDS: LISINOPRIL 10 MG TABLET PO SCH (08:38)
[2023-04-12] MEDS: ISOSORBIDE MONO 60MG SR TAB PO SCH (08:38)
[2023-04-12] MEDS: GABAPENTIN 100 MG CAPSULE PO SCH (08:38)
[2023-04-12] MEDS: METOPROLOL SUCCINATE 50 MG TAB.SR.24H PO SCH (08:38)
[2023-04-12] MEDS: ASPIRIN 81MG CHEW TAB PO SCH (08:39)
[2023-04-12] MEDS: FINERENONE 20 MG PO SCH (08:39)
[2023-04-12 12:00] VITALS: BP 170/94; PULSE 82; RESP 18
== END 2023-04-12 17:45 | disposition home or self-care (01) | DRG 700 ==
LOC: EDH 04:43 → EDHIP 06:40 → 4DH 09:55
PROVIDERS: ADMIT Internal Medicine; ATTEND Internal Medicine
PROC: 3E053GC Introduction of Other Therapeutic Substance into Peripheral Artery, Percutaneous Approach (ICD-10-PCS; principal; 2023-04-09)
PROC: 30233N1 Transfusion of Nonautologous Red Blood Cells into Peripheral Vein, Percutaneous Approach (ICD-10-PCS; 2023-04-10)
DX: I72.2 Aneurysm of renal artery (principal); E11.9 Type 2 diabetes mellitus without complications; I25.10 Atherosclerotic heart disease of native coronary artery without angina pectoris; D64.9 Anemia, unspecified; E78.00 Pure hypercholesterolemia, unspecified; I10 Essential (primary) hypertension; Z95.5 Presence of coronary angioplasty implant and graft
CPT/HCPCS: 36002; 36415; 36430; 76882; 76942; 80053; 85014; 85018; 85025; 85027; 86850; 86900; 86901; 86923; G0378; J0360; J1200; J2920; J3490; P9016; A4215

== ENCOUNTER 2023-05-28 21:40 | Inpatient (IN) | payer OTHER ==
[~2023-05-28] VITALS: Ht 154.9 cm; Wt 59.0 kg
[~2023-05-28 21:40] MED LIST changes: -INSU300I SQ
[2023-05-28 22:00] LABS: BASOPHILS # (AUTO) 0.01 K/uL (0.00-0.20); BASOPHILS % (AUTO) 0.2 % (0.0-5.0); IMMATURE GRANULOCYTE ABSOLUTE 0.02 K/uL (0-1); LYMPHOCYTES # (AUTO) 1.3 K/uL (1.0-4.8); LYMPHOCYTES % (AUTO) 25.1 % (21.0-51.0); MEAN CORPUSCULAR HEMOGLOBIN 30.4 pg (27.0-33.0); MONOCYTES # (AUTO) 0.5 K/uL (0.1-1.0); NEUTROPHILS # (AUTO) 3.2 K/uL (1.8-7.7); NEUTROPHILS % (AUTO) 63.3 % (40.0-77.0); PLATELET COUNT (AUTO) 202 K/uL (130-400); RED BLOOD CELL COUNT(AUTO) 2.53 MIL/uL (4.00-5.50); RED CELL DISTRIBUTION WIDTH 14.2 % (11.0-15.5)
[2023-05-28 22:09] LABS: CREATININE 1.2 mg/dL (0.5-1.5); POTASSIUM 3.5 mmol/L (3.5-5.1)
[2023-05-28 22:14] LABS: ALBUMIN 2.6 g/dL (3.5-5.0); BILIRUBIN,TOTAL 0.3 mg/dL (0.2-1.0); TOTAL PROTEIN, SERUM 5.9 g/dL (6.0-8.3)
[2023-05-28 22:34] LABS: INR 0.98 (0.85-1.15); PROTHROMBIN TIME 11.4 SEC (9.6-11.6)
[2023-05-28 22:35] LABS: PARTIAL THROMBOPLASTIN TIME 22.4 SEC (26.3-35.5)
[2023-05-28] MEDS: NICARDIPINE 25MG INJ 25 MG in 0.9% NACL 250ML 240 ML IV SCH (23:02)
[2023-05-28 23:25] LABS: APPEARANCE,URINE CLEAR (CLEAR); BILIRUBIN,URINE NEGATIVE (NEGATIVE); COLOR,URINE LIGHT-YELLOW (YELLOW); GLUCOSE, URINE (UA) 150 mg/dL (NEGATIVE); KETONES,URINE NEGATIVE (NEGATIVE); LEUKOCYTE ESTERASE ,URINE NEGATIVE Leu/uL (NEGATIVE); NITRATE,URINE NEGATIVE (NEGATIVE); PH,URINE 6.5 (5.0-8.0); PROTEIN,URINE 200 mg/dL (NEGATIVE); UROBILINOGEN,URINE 0.2 mg/dL (0.2-1.0)
[2023-05-28 23:33] LABS: ADD UA MICROSCOPIC YES
[2023-05-28 23:34] LABS: BACTERIA,URINE None Seen /HPF (None Seen); RBC,URINE 0-1 /HPF (0-1); SQUAMOUS EPITHELIAL CELL,UR Rare /HPF (0-2)
[2023-05-29] VITALS (60 sets, daily range): BP systolic 96–147; BP diastolic 46–99; PULSE 79–114; RESP 6–49; O2SAT 97
[2023-05-29] MEDS ORDERED: PHARMACY COMMUNICATION MISC SCH
[2023-05-29] MEDS ORDERED: ACETAMINOPHEN 650 MG SUPPOSITORY RC PRN (00:30)
[2023-05-29] MEDS ORDERED: ALBUTEROL 0.083% 2.5 MG/3 ML INH IH PRN (00:30)
[2023-05-29] MEDS ORDERED: ONDANSETRON 4MG INJ IVP PRN (00:30)
[2023-05-29] MEDS ORDERED: HYDRALAZINE 20MG/ML VIAL IV PRN (00:30)
[2023-05-29] MEDS ORDERED: LABETALOL 20MG SYG IV PRN (00:30)
[2023-05-29] MEDS ORDERED: IPRATROPIUM 0.5 MG/2.5 ML INH IH PRN (00:30)
[2023-05-29] MEDS ORDERED: MANNITOL 25% 50ML VIAL IV PRN (00:30)
[2023-05-29] MEDS ORDERED: MANNITOL 20% 500ML BAG 500 ML IV PRN (00:30)
[2023-05-29] MEDS ORDERED: GLUCAGON 1MG KIT 1 MG ML IM PRN (01:00)
[2023-05-29] MEDS ORDERED: DEXTROSE 50%-WATER 50 ML DISP.SYRIN IV PRN (01:00)
[2023-05-29] MEDS ORDERED: POTASSIUM CHLORIDE 10MEQ/100ML 100 ML IV PRN (01:00)
[2023-05-29] MEDS ORDERED: INSULIN HUMULIN R 100 UNIT/ML 3ML SQ SCH (07:30)
[2023-05-29] MEDS: INSULIN HUMULIN R 100 UNIT/ML 3ML SQ SCH ×4 (08:00→20:00)
[2023-05-29 08:51] LABS: BASOPHILS # (AUTO) 0.02 K/uL (0.00-0.20); BASOPHILS % (AUTO) 0.3 % (0.0-5.0); EOSINOPHILS # (AUTO) 0.06 K/uL (0.00-0.70); EOSINOPHILS % (AUTO) 0.9 % (0.0-8.0); HEMATOCRIT 22.7 % (36-48); IMMATURE GRANULOCYTE ABSOLUTE 0.02 K/uL (0-1); LYMPHOCYTES % (AUTO) 14.8 % (21.0-51.0); MEAN CORPUSCULAR HEMOGLOBIN 30.5 pg (27.0-33.0); MEAN CORPUSCULAR HGB CONC 35.2 g/dL (32.0-36.0); MEAN CORPUSCULAR VOLUME 86.6 fL (79-99); MONOCYTES # (AUTO) 0.5 K/uL (0.1-1.0); MONOCYTES % (AUTO) 7.8 % (3.0-13.0); NEUTROPHILS # (AUTO) 4.9 K/uL (1.8-7.7); NEUTROPHILS % (AUTO) 75.9 % (40.0-77.0); PLATELET COUNT (AUTO) 231 K/uL (130-400); RED BLOOD CELL COUNT(AUTO) 2.62 MIL/uL (4.00-5.50); RED CELL DISTRIBUTION WIDTH 14.3 % (11.0-15.5); WHITE BLOOD COUNT (AUTO) 6.4 K/uL (4.8-10.8)
[2023-05-29 09:07] LABS: ALBUMIN 2.7 g/dL (3.5-5.0); BILIRUBIN,TOTAL 0.4 mg/dL (0.2-1.0); MAGNESIUM 1.5 mg/dL (1.80-2.40); POTASSIUM 3.8 mmol/L (3.5-5.1); TOTAL PROTEIN, SERUM 6.1 g/dL (6.0-8.3)
[2023-05-29] MEDS: DOCUSATE SODIUM 100 MG CAP PO SCH (09:34)
[2023-05-29] MEDS: NICARDIPINE 25MG INJ 25 MG in 0.9% NACL 250ML 240 ML IV SCH ×3 (10:48→22:55)
[2023-05-29 15:11] LABS: CREATININE 0.8 mg/dL (0.5-1.5); POTASSIUM 3.5 mmol/L (3.5-5.1)
[2023-05-29] MEDS ORDERED: COMPOUND IV REFRIGERATED 1 EACH IVSOLN MISC PRN (16:30)
[2023-05-29] MEDS ORDERED: COMPOUND IV MISC 1 EACH IVSOLN MISC PRN (16:30)
[2023-05-29] MEDS ORDERED: ACET-2079 PO (16:52)
[2023-05-29] MEDS ORDERED: INSU300I SQ (16:53)
[2023-05-29] MEDS: ACETAMINOPHEN 325 MG TAB PO PRN (16:58)
[2023-05-29] MEDS: ACETAMINOPHEN WITH CODEINE 1 TAB TAB PO SCH (20:30)
[2023-05-29] MEDS: ATORVASTATIN 40 MG TABLET PO SCH (20:45)
[2023-05-29] MEDS: GABAPENTIN 100 MG CAPSULE PO SCH (20:45)
[2023-05-29 20:46] LABS: CREATININE 0.9 mg/dL (0.5-1.5); POTASSIUM 3.6 mmol/L (3.5-5.1)
[2023-05-30] VITALS (88 sets, daily range): BP systolic 88–156; BP diastolic 34–84; PULSE 76–104; RESP 6–38; O2SAT 94–97
[2023-05-30] MEDS: ACETAMINOPHEN WITH CODEINE 1 TAB TAB PO SCH ×3 (04:37→20:44)
[2023-05-30 05:41] LABS: BASOPHILS # (AUTO) 0.02 K/uL (0.00-0.20); BASOPHILS % (AUTO) 0.3 % (0.0-5.0); EOSINOPHILS # (AUTO) 0.09 K/uL (0.00-0.70); EOSINOPHILS % (AUTO) 1.4 % (0.0-8.0); HEMATOCRIT 21.5 % (36-48); IMMATURE GRANULOCYTE ABSOLUTE 0.02 K/uL (0-1); LYMPHOCYTES # (AUTO) 1.1 K/uL (1.0-4.8); LYMPHOCYTES % (AUTO) 17.9 % (21.0-51.0); MEAN CORPUSCULAR HEMOGLOBIN 30.6 pg (27.0-33.0); MEAN CORPUSCULAR HGB CONC 34.9 g/dL (32.0-36.0); MEAN CORPUSCULAR VOLUME 87.8 fL (79-99); MONOCYTES # (AUTO) 0.5 K/uL (0.1-1.0); MONOCYTES % (AUTO) 8.4 % (3.0-13.0); NEUTROPHILS # (AUTO) 4.5 K/uL (1.8-7.7); NEUTROPHILS % (AUTO) 71.7 % (40.0-77.0); PLATELET COUNT (AUTO) 241 K/uL (130-400); RED BLOOD CELL COUNT(AUTO) 2.45 MIL/uL (4.00-5.50); RED CELL DISTRIBUTION WIDTH 14.4 % (11.0-15.5); WHITE BLOOD COUNT (AUTO) 6.3 K/uL (4.8-10.8)
[2023-05-30 05:59] LABS: HEMOGLOBIN A1C 8.3 % (4.0-6.0)
[2023-05-30 06:31] LABS: CREATININE 0.9 mg/dL (0.5-1.5); POTASSIUM 3.4 mmol/L (3.5-5.1); THYROID STIMULATING HORMONE 1.32 uIU/mL (0.36-3.74)
[2023-05-30] MEDS: INSULIN HUMULIN R 100 UNIT/ML 3ML SQ SCH ×4 (07:30→21:00)
[2023-05-30] MEDS ORDERED: NON-FORMULARY MEDICATION 1 EACH (Rosuvastatin Calcium 20 MG) PO SCH (09:00)
[2023-05-30] MEDS: DOCUSATE SODIUM 100 MG CAP PO SCH (09:01)
[2023-05-30] MEDS: GABAPENTIN 100 MG CAPSULE PO SCH ×2 (09:01→20:44)
[2023-05-30] MEDS ORDERED: POTASSIUM CHLORIDE 10% ELIXIR 20 MEQ/15 ML UDCUP PO PRN (09:30)
[2023-05-30] MEDS: NICARDIPINE 25MG INJ 25 MG in 0.9% NACL 250ML 240 ML IV SCH ×3 (10:14→19:44)
[2023-05-30] MEDS: KCL 20 MEQ ERTAB PO PRN ×3 (10:27→13:18)
[2023-05-30] MEDS ORDERED: LACTULOSE 20 GM/30 ML UDCUP PO PRN (10:30)
[2023-05-30] MEDS: MAGNESIUM 2GM PREMIX 50ML 50 ML IV PRN (13:18)
[2023-05-30] MEDS: ATORVASTATIN 40 MG TABLET PO SCH (20:44)
[2023-05-31] VITALS (84 sets, daily range): BP systolic 90–185; BP diastolic 37–95; PULSE 67–109; RESP 4–23; TEMP 100.2; O2SAT 93–98
[2023-05-31] MEDS: ACETAMINOPHEN WITH CODEINE 1 TAB TAB PO SCH ×3 (03:37→20:16)
[2023-05-31 03:39] LABS: BASOPHILS # (AUTO) 0.01 K/uL (0.00-0.20); BASOPHILS % (AUTO) 0.2 % (0.0-5.0); EOSINOPHILS # (AUTO) 0.13 K/uL (0.00-0.70); IMMATURE GRANULOCYTE ABSOLUTE 0.02 K/uL (0-1); LYMPHOCYTES # (AUTO) 1.4 K/uL (1.0-4.8); LYMPHOCYTES % (AUTO) 21.9 % (21.0-51.0); MEAN CORPUSCULAR HEMOGLOBIN 30.3 pg (27.0-33.0); MEAN CORPUSCULAR HGB CONC 34.1 g/dL (32.0-36.0); MEAN CORPUSCULAR VOLUME 88.7 fL (79-99); MONOCYTES # (AUTO) 0.7 K/uL (0.1-1.0); MONOCYTES % (AUTO) 11.2 % (3.0-13.0); NEUTROPHILS # (AUTO) 4.1 K/uL (1.8-7.7); NEUTROPHILS % (AUTO) 64.4 % (40.0-77.0); PLATELET COUNT (AUTO) 206 K/uL (130-400); RED BLOOD CELL COUNT(AUTO) 2.31 MIL/uL (4.00-5.50); RED CELL DISTRIBUTION WIDTH 14.3 % (11.0-15.5); WHITE BLOOD COUNT (AUTO) 6.4 K/uL (4.8-10.8)
[2023-05-31 03:42] LABS: HEMATOCRIT 20.5 % (36-48)
[2023-05-31 03:49] LABS: MAGNESIUM 1.9 mg/dL (1.80-2.40); POTASSIUM 4.3 mmol/L (3.5-5.1)
[2023-05-31] MEDS: MAGNESIUM 2GM PREMIX 50ML 50 ML IV PRN (07:25)
[2023-05-31] MEDS: INSULIN HUMULIN R 100 UNIT/ML 3ML SQ SCH ×4 (07:28→20:27)
[2023-05-31] MEDS: DOCUSATE SODIUM 100 MG CAP PO SCH (08:16)
[2023-05-31] MEDS: GABAPENTIN 100 MG CAPSULE PO SCH ×2 (08:16→20:16)
[2023-05-31 08:36] LABS: HEMATOCRIT 22.1 % (36-48)
[2023-05-31] MEDS: NICARDIPINE 25MG INJ 25 MG in 0.9% NACL 250ML 240 ML IV SCH (15:28)
[2023-05-31] MEDS ORDERED: LISINOPRIL 10 MG TABLET PO ONE (15:30)
[2023-05-31] MEDS ORDERED: METOPROLOL SUCCINATE 50 MG TAB.SR.24H PO ONE (15:30)
[2023-05-31] MEDS ORDERED: NICARDIPINE 25MG INJ 25 MG in 0.9% NACL 250ML 240 ML IV SCH (15:30)
[2023-05-31] MEDS ORDERED: ISOSORBIDE MONO 60MG SR TAB PO ONE (15:30)
[2023-05-31 16:44] LABS: RAPID GROUP A STREP negative (NEGATIVE)
[2023-05-31 16:56] LABS: SARS-CoV-2, RNA, NAAT NEGATIVE SARS CoV-2 (NEGATIVE)
[2023-05-31 16:57] LABS: INFLUENZA TYPE A Negative For Type A (NEGATIVE); INFLUENZA TYPE B Negative For Type B (NEGATIVE)
[2023-05-31] MEDS: METFORMIN HCL 500 MG TABLET PO SCH (17:30)
[2023-05-31] MEDS: ACETAMINOPHEN 325 MG TAB PO PRN (19:05)
[2023-05-31] MEDS: METOPROLOL SUCCINATE 50 MG TAB.SR.24H PO SCH (20:15)
[2023-05-31] MEDS: ATORVASTATIN 40 MG TABLET PO SCH (20:16)
[2023-06-01] VITALS (68 sets, daily range): BP systolic 88–171; BP diastolic 43–93; PULSE 61–90; RESP 10–25; O2SAT 86–99
[2023-06-01 03:36] LABS: BASOPHILS # (AUTO) 0.02 K/uL (0.00-0.20); BASOPHILS % (AUTO) 0.3 % (0.0-5.0); EOSINOPHILS # (AUTO) 0.06 K/uL (0.00-0.70); EOSINOPHILS % (AUTO) 0.9 % (0.0-8.0); IMMATURE GRANULOCYTE ABSOLUTE 0.03 K/uL (0-1); LYMPHOCYTES # (AUTO) 0.6 K/uL (1.0-4.8); LYMPHOCYTES % (AUTO) 8.1 % (21.0-51.0); MEAN CORPUSCULAR HEMOGLOBIN 30.3 pg (27.0-33.0); MEAN CORPUSCULAR VOLUME 89.1 fL (79-99); MONOCYTES # (AUTO) 0.7 K/uL (0.1-1.0); NEUTROPHILS # (AUTO) 5.4 K/uL (1.8-7.7); NEUTROPHILS % (AUTO) 79.3 % (40.0-77.0); PLATELET COUNT (AUTO) 193 K/uL (130-400); RED BLOOD CELL COUNT(AUTO) 2.11 MIL/uL (4.00-5.50); RED CELL DISTRIBUTION WIDTH 14.2 % (11.0-15.5); WHITE BLOOD COUNT (AUTO) 6.8 K/uL (4.8-10.8)
[2023-06-01 03:45] LABS: CREATININE 1.1 mg/dL (0.5-1.5)
[2023-06-01 04:06] LABS: HEMATOCRIT 18.8 % (36-48)
[2023-06-01 04:19] LABS: WBC MORPHOLOGY CONSISTENT W/DIFF
[2023-06-01] MEDS: ACETAMINOPHEN WITH CODEINE 1 TAB TAB PO SCH ×3 (04:30→20:30)
[2023-06-01] MEDS ORDERED: DiphenhydrAMINE HCL 50 MG/ML VIAL IV ONE (07:00)
[2023-06-01] MEDS ORDERED: SOLU-MEDROL 40MG VIAL IVP ONE (07:00)
[2023-06-01] MEDS: INSULIN HUMULIN R 100 UNIT/ML 3ML SQ SCH ×4 (07:30→20:55)
[2023-06-01] MEDS: GABAPENTIN 100 MG CAPSULE PO SCH ×2 (08:18→20:47)
[2023-06-01] MEDS: ISOSORBIDE MONO 60MG SR TAB PO SCH (08:18)
[2023-06-01] MEDS: METOPROLOL SUCCINATE 50 MG TAB.SR.24H PO SCH ×2 (08:18→20:47)
[2023-06-01] MEDS: DOCUSATE SODIUM 100 MG CAP PO SCH (08:19)
[2023-06-01] MEDS: METFORMIN HCL 500 MG TABLET PO SCH ×2 (08:19→15:55)
[2023-06-01] MEDS: ACETAMINOPHEN 325 MG TAB PO PRN (08:19)
[2023-06-01] MEDS: IRON SUCROSE COMPLEX 300 MG in 0.9% NACL 250ML IV SCH (08:19)
[2023-06-01] MEDS ORDERED: LISINOPRIL 10 MG TABLET PO SCH (09:00)
[2023-06-01] MEDS ORDERED: AMLODIPINE 5 MG TAB PO ONE (10:00)
[2023-06-01] MEDS: PANTOPRAZOLE 40 MG/VIAL IVP SCH ×2 (10:21→20:47)
[2023-06-01 14:42] LABS: HEMATOCRIT 25.3 % (36-48)
[2023-06-01] MEDS ORDERED: ACETAZOLAMIDE SODIUM 500 MG VIAL IV STA (20:34)
[2023-06-01] MEDS: ATORVASTATIN 40 MG TABLET PO SCH (20:47)
[2023-06-01 21:45] LABS: AMPHET/METH SCREEN,URINE NEGATIVE (NEGATIVE); BARBITURATE SCREEN, URINE NEGATIVE (NEGATIVE); BENZODIAZEPINES SCREEN,URINE NEGATIVE (NEGATIVE); CANNABINOID SCREEN,URINE NEGATIVE (NEGATIVE); COCAINE SCREEN,URINE NEGATIVE (NEGATIVE); OPIATE SCREEN,URINE NEGATIVE (NEGATIVE); PHENCYCLIDINE SCREEN,URINE NEGATIVE (NEGATIVE)
[2023-06-02] VITALS (56 sets, daily range): BP systolic 100–158; BP diastolic 50–87; PULSE 66–91; RESP 11–40; O2SAT 96–99
[2023-06-02] MEDS: INSULIN HUMULIN R 100 UNIT/ML 3ML SQ SCH ×4 (07:30→20:47)
[2023-06-02] MEDS: ACETAMINOPHEN WITH CODEINE 1 TAB TAB PO SCH ×3 (07:50→20:30)
[2023-06-02] MEDS: METFORMIN HCL 500 MG TABLET PO SCH ×2 (08:11→17:12)
[2023-06-02] MEDS: METOPROLOL SUCCINATE 50 MG TAB.SR.24H PO SCH ×2 (08:11→20:46)
[2023-06-02] MEDS: GABAPENTIN 100 MG CAPSULE PO SCH ×2 (08:12→20:46)
[2023-06-02] MEDS: AMLODIPINE 5 MG TAB PO SCH (08:12)
[2023-06-02] MEDS: DOCUSATE SODIUM 100 MG CAP PO SCH (08:12)
[2023-06-02] MEDS: ISOSORBIDE MONO 60MG SR TAB PO SCH (08:12)
[2023-06-02] MEDS: LISINOPRIL 10 MG TABLET PO SCH (08:13)
[2023-06-02] MEDS: PANTOPRAZOLE 40 MG/VIAL IVP SCH ×2 (08:13→20:46)
[2023-06-02] MEDS: IRON SUCROSE COMPLEX 300 MG in 0.9% NACL 250ML IV SCH (10:15)
[2023-06-02 10:29] LABS: BASOPHILS # (AUTO) 0.01 K/uL (0.00-0.20); BASOPHILS % (AUTO) 0.1 % (0.0-5.0); EOSINOPHILS # (AUTO) 0.03 K/uL (0.00-0.70); EOSINOPHILS % (AUTO) 0.4 % (0.0-8.0); HEMATOCRIT 27.2 % (36-48); IMMATURE GRANULOCYTE ABSOLUTE 0.02 K/uL (0-1); LYMPHOCYTES # (AUTO) 1.5 K/uL (1.0-4.8); LYMPHOCYTES % (AUTO) 18.2 % (21.0-51.0); MEAN CORPUSCULAR HEMOGLOBIN 30.3 pg (27.0-33.0); MEAN CORPUSCULAR HGB CONC 34.6 g/dL (32.0-36.0); MEAN CORPUSCULAR VOLUME 87.7 fL (79-99); MONOCYTES # (AUTO) 0.9 K/uL (0.1-1.0); MONOCYTES % (AUTO) 11.2 % (3.0-13.0); NEUTROPHILS # (AUTO) 5.6 K/uL (1.8-7.7); NEUTROPHILS % (AUTO) 69.9 % (40.0-77.0); PLATELET COUNT (AUTO) 253 K/uL (130-400); RED CELL DISTRIBUTION WIDTH 14.2 % (11.0-15.5)
[2023-06-02 10:41] LABS: ALBUMIN 2.4 g/dL (3.5-5.0); BILIRUBIN,TOTAL 0.6 mg/dL (0.2-1.0); CREATININE 1.1 mg/dL (0.5-1.5); POTASSIUM 3.7 mmol/L (3.5-5.1); TOTAL PROTEIN, SERUM 5.9 g/dL (6.0-8.3)
[2023-06-02] MEDS: ATORVASTATIN 40 MG TABLET PO SCH (20:46)
[2023-06-03] VITALS (32 sets, daily range): BP systolic 126–164; BP diastolic 62–95; PULSE 73–87; RESP 11–17; O2SAT 92–99
[2023-06-03] MEDS: ACETAMINOPHEN WITH CODEINE 1 TAB TAB PO SCH ×3 (04:30→20:17)
[2023-06-03] MEDS: INSULIN HUMULIN R 100 UNIT/ML 3ML SQ SCH ×4 (06:09→20:31)
[2023-06-03] MEDS: METFORMIN HCL 500 MG TABLET PO SCH ×2 (08:41→17:00)
[2023-06-03] MEDS: METOPROLOL SUCCINATE 50 MG TAB.SR.24H PO SCH ×2 (08:41→20:17)
[2023-06-03] MEDS: AMLODIPINE 5 MG TAB PO SCH (08:42)
[2023-06-03] MEDS: LISINOPRIL 10 MG TABLET PO SCH (08:42)
[2023-06-03] MEDS: DOCUSATE SODIUM 100 MG CAP PO SCH (08:42)
[2023-06-03] MEDS: GABAPENTIN 100 MG CAPSULE PO SCH ×2 (08:42→20:17)
[2023-06-03] MEDS: PANTOPRAZOLE 40 MG/VIAL IVP SCH ×2 (08:42→20:17)
[2023-06-03] MEDS: ISOSORBIDE MONO 60MG SR TAB PO SCH (08:42)
[2023-06-03] MEDS ORDERED: LISINOPRIL 20 MG TABLET PO ONE (10:30)
[2023-06-03] MEDS: ACETAMINOPHEN 325 MG TAB PO PRN ×2 (11:00→18:41)
[2023-06-03] MEDS: ATORVASTATIN 40 MG TABLET PO SCH (20:17)
[2023-06-04] VITALS (7 sets, daily range): BP systolic 118–153; BP diastolic 59–76; PULSE 68–95; RESP 17–20; O2SAT 99–100
[2023-06-04] MEDS: ACETAMINOPHEN WITH CODEINE 1 TAB TAB PO SCH ×3 (04:11→20:31)
[2023-06-04] MEDS: INSULIN HUMULIN R 100 UNIT/ML 3ML SQ SCH ×4 (05:50→20:32)
[2023-06-04] MEDS: ISOSORBIDE MONO 60MG SR TAB PO SCH (08:28)
[2023-06-04] MEDS: GABAPENTIN 100 MG CAPSULE PO SCH ×2 (08:29→20:31)
[2023-06-04] MEDS: METOPROLOL SUCCINATE 50 MG TAB.SR.24H PO SCH ×2 (08:29→20:31)
[2023-06-04] MEDS: LISINOPRIL 10 MG TABLET PO SCH (08:32)
[2023-06-04] MEDS: DOCUSATE SODIUM 100 MG CAP PO SCH (08:33)
[2023-06-04] MEDS: PANTOPRAZOLE 40 MG/VIAL IVP SCH ×2 (08:33→20:31)
[2023-06-04] MEDS: AMLODIPINE 5 MG TAB PO SCH (08:33)
[2023-06-04] MEDS: METFORMIN HCL 500 MG TABLET PO SCH ×2 (08:33→17:00)
[2023-06-04] MEDS: ATORVASTATIN 40 MG TABLET PO SCH (20:31)
[2023-06-05] VITALS (9 sets, daily range): BP systolic 109–145; BP diastolic 54–75; PULSE 68–85; RESP 17–20; O2SAT 99–100
[2023-06-05] MEDS: ACETAMINOPHEN WITH CODEINE 1 TAB TAB PO SCH ×3 (03:29→20:30)
[2023-06-05] MEDS: INSULIN HUMULIN R 100 UNIT/ML 3ML SQ SCH ×4 (05:13→21:00)
[2023-06-05] MEDS: GABAPENTIN 100 MG CAPSULE PO SCH ×2 (09:41→20:53)
[2023-06-05] MEDS: PANTOPRAZOLE 40 MG/VIAL IVP SCH ×2 (09:42→21:09)
[2023-06-05] MEDS: AMLODIPINE 5 MG TAB PO SCH (09:42)
[2023-06-05] MEDS: METOPROLOL SUCCINATE 50 MG TAB.SR.24H PO SCH ×2 (09:42→20:53)
[2023-06-05] MEDS: LISINOPRIL 10 MG TABLET PO SCH (09:42)
[2023-06-05] MEDS: DOCUSATE SODIUM 100 MG CAP PO SCH (09:42)
[2023-06-05] MEDS: ISOSORBIDE MONO 60MG SR TAB PO SCH (09:46)
[2023-06-05] MEDS: METFORMIN HCL 500 MG TABLET PO SCH ×2 (09:46→16:37)
[2023-06-05] MEDS: ATORVASTATIN 40 MG TABLET PO SCH (20:53)
[2023-06-06] VITALS (7 sets, daily range): BP systolic 120–143; BP diastolic 61–76; PULSE 71–96; RESP 18–19; O2SAT 98–100
[2023-06-06] MEDS: ACETAMINOPHEN WITH CODEINE 1 TAB TAB PO SCH ×3 (04:30→20:01)
[2023-06-06] MEDS: INSULIN HUMULIN R 100 UNIT/ML 3ML SQ SCH ×4 (06:50→20:09)
[2023-06-06] MEDS: METFORMIN HCL 500 MG TABLET PO SCH ×2 (08:47→17:17)
[2023-06-06] MEDS: PANTOPRAZOLE 40 MG/VIAL IVP SCH ×2 (08:48→20:01)
[2023-06-06] MEDS: AMLODIPINE 5 MG TAB PO SCH (08:48)
[2023-06-06] MEDS: METOPROLOL SUCCINATE 50 MG TAB.SR.24H PO SCH ×2 (08:48→20:00)
[2023-06-06] MEDS: GABAPENTIN 100 MG CAPSULE PO SCH ×2 (08:48→20:00)
[2023-06-06] MEDS: DOCUSATE SODIUM 100 MG CAP PO SCH (08:48)
[2023-06-06] MEDS: ISOSORBIDE MONO 60MG SR TAB PO SCH (08:48)
[2023-06-06] MEDS: LISINOPRIL 10 MG TABLET PO SCH (08:48)
[2023-06-06] MEDS: ATORVASTATIN 40 MG TABLET PO SCH (20:00)
[2023-06-07] VITALS: BP 129/61; PULSE 81; RESP 18
[2023-06-07] MEDS: ACETAMINOPHEN WITH CODEINE 1 TAB TAB PO SCH ×2 (03:39→12:22)
[2023-06-07 04:00] VITALS: BP 137/72; PULSE 84; RESP 17
[2023-06-07] MEDS: INSULIN HUMULIN R 100 UNIT/ML 3ML SQ SCH ×2 (06:05→11:30)
[2023-06-07 07:59] VITALS: BP 111/57; PULSE 71; RESP 18
[2023-06-07 08:25] VITALS: O2SAT 100
[2023-06-07 08:27] LABS: BASOPHILS # (AUTO) 0.01 K/uL (0.00-0.20); BASOPHILS % (AUTO) 0.2 % (0.0-5.0); EOSINOPHILS # (AUTO) 0.26 K/uL (0.00-0.70); EOSINOPHILS % (AUTO) 4.4 % (0.0-8.0); HEMATOCRIT 28.7 % (36-48); IMMATURE GRANULOCYTE ABSOLUTE 0.02 K/uL (0-1); LYMPHOCYTES # (AUTO) 1.3 K/uL (1.0-4.8); LYMPHOCYTES % (AUTO) 21.6 % (21.0-51.0); MEAN CORPUSCULAR HEMOGLOBIN 30.2 pg (27.0-33.0); MEAN CORPUSCULAR HGB CONC 35.2 g/dL (32.0-36.0); MEAN CORPUSCULAR VOLUME 85.9 fL (79-99); MONOCYTES # (AUTO) 0.4 K/uL (0.1-1.0); NEUTROPHILS # (AUTO) 3.9 K/uL (1.8-7.7); NEUTROPHILS % (AUTO) 66.5 % (40.0-77.0); PLATELET COUNT (AUTO) 302 K/uL (130-400); RED BLOOD CELL COUNT(AUTO) 3.34 MIL/uL (4.00-5.50); WHITE BLOOD COUNT (AUTO) 5.9 K/uL (4.8-10.8)
[2023-06-07 08:37] LABS: CREATININE 0.9 mg/dL (0.5-1.5); POTASSIUM 3.2 mmol/L (3.5-5.1)
[2023-06-07] MEDS: PANTOPRAZOLE 40 MG/VIAL IVP SCH (09:12)
[2023-06-07] MEDS: GABAPENTIN 100 MG CAPSULE PO SCH (09:12)
[2023-06-07] MEDS: METFORMIN HCL 500 MG TABLET PO SCH (09:13)
[2023-06-07] MEDS: AMLODIPINE 5 MG TAB PO SCH (09:13)
[2023-06-07] MEDS: DOCUSATE SODIUM 100 MG CAP PO SCH (09:13)
[2023-06-07] MEDS: LISINOPRIL 10 MG TABLET PO SCH (09:13)
[2023-06-07] MEDS: ISOSORBIDE MONO 60MG SR TAB PO SCH (09:13)
[2023-06-07] MEDS: METOPROLOL SUCCINATE 50 MG TAB.SR.24H PO SCH (09:13)
[2023-06-07 12:00] VITALS: BP 127/74; PULSE 75; RESP 18
[2023-06-07] MEDS: KCL 20 MEQ ERTAB PO PRN (12:19)
== END 2023-06-07 18:00 | DRG 64 ==
LOC: EDH 21:40 → EDHIP 22:45 → 2BH 05-29 08:10 → 3CH 06-03 10:44
PROVIDERS: ADMIT Internal Medicine; ATTEND Internal Medicine
DX: I61.8 Other nontraumatic intracerebral hemorrhage (principal); G93.41 Metabolic encephalopathy; G93.6 Cerebral edema; I61.0 Nontraumatic intracerebral hemorrhage in hemisphere, subcortical; Z20.822 Contact with and (suspected) exposure to COVID-19; W01.0XXA Fall on same level from slipping, tripping and stumbling without subsequent striking against object, initial encounter; I10 Essential (primary) hypertension; H53.9 Unspecified visual disturbance; I16.0 Hypertensive urgency; D64.9 Anemia, unspecified; E11.65 Type 2 diabetes mellitus with hyperglycemia; E78.00 Pure hypercholesterolemia, unspecified; E11.42 Type 2 diabetes mellitus with diabetic polyneuropathy; H54.62 Unqualified visual loss, left eye, normal vision right eye; I25.10 Atherosclerotic heart disease of native coronary artery without angina pectoris; I72.4 Aneurysm of artery of lower extremity; S00.83XA Contusion of other part of head, initial encounter; W06.XXXA Fall from bed, initial encounter; Y93.89 Activity, other specified; Y92.89 Other specified places as the place of occurrence of the external cause; Y99.8 Other external cause status; Z74.01 Bed confinement status; Z79.02 Long term (current) use of antithrombotics/antiplatelets; Z86.73 Personal history of transient ischemic attack (TIA), and cerebral infarction without residual deficits; Z88.2 Allergy status to sulfonamides; Z95.5 Presence of coronary angioplasty implant and graft; Z91.041 Radiographic dye allergy status; Z79.84 Long term (current) use of oral hypoglycemic drugs
CPT/HCPCS: 36415; 36430; 70450; 70486; 70551; 71045; 72125; 73030; 73502; 80048; 80053; 80061; 80305; 81001; 82306; 82948; 83036; 83735; 83930; 84439; 84443; 84481; 84484; 85014; 85018; 85025; 85610; 85730; 86850; 86900; 86901; 86923; 87635; 87804; 87880; 92610; 93005; C9113; G0378; J0360; J1120; J1200; J1756; J1815; J2920; J3475; J3490; J7050; P9016; A4600

== ENCOUNTER 2023-08-27 11:23 | Emergency (ER) | payer MEDICAID, OTHER ==
[~2023-08-27] VITALS: Ht 160 cm; Wt 52.2 kg
[~2023-08-27 11:23] MED LIST changes: +ACET-2079 PO; +AMLO-258 PO; -ASPI-1197 PO; +CLOP-31 PO; -CLOP75TA32 PO; -FINE20TA PO; +FURO40TA5 PO; +INSU100V3 IJ; +MULT-1367 PO; +PANT40GR PO
[2023-08-27 15:13] LABS: BASOPHILS # (AUTO) 0.02 K/uL (0.00-0.20); BASOPHILS % (AUTO) 0.4 % (0.0-5.0); EOSINOPHILS # (AUTO) 0.11 K/uL (0.00-0.70); IMMATURE GRANULOCYTE ABSOLUTE 0.01 K/uL (0-1); LYMPHOCYTES # (AUTO) 1.4 K/uL (1.0-4.8); LYMPHOCYTES % (AUTO) 25.8 % (21.0-51.0); MEAN CORPUSCULAR HEMOGLOBIN 31.4 pg (27.0-33.0); MEAN CORPUSCULAR VOLUME 87.2 fL (79-99); MONOCYTES # (AUTO) 0.6 K/uL (0.1-1.0); MONOCYTES % (AUTO) 10.6 % (3.0-13.0); NEUTROPHILS # (AUTO) 3.4 K/uL (1.8-7.7); PLATELET COUNT (AUTO) 234 K/uL (130-400); RED BLOOD CELL COUNT(AUTO) 3.44 MIL/uL (4.00-5.50); RED CELL DISTRIBUTION WIDTH 11.8 % (11.0-15.5); WHITE BLOOD COUNT (AUTO) 5.5 K/uL (4.8-10.8)
[2023-08-27 15:27] LABS: CREATININE 2.6 mg/dL (0.5-1.5); POTASSIUM 3.8 mmol/L (3.5-5.1)
[2023-08-27 15:36] LABS: ALBUMIN 3.6 g/dL (3.5-5.0); BILIRUBIN,TOTAL 0.4 mg/dL (0.2-1.0); TOTAL PROTEIN, SERUM 7.9 g/dL (6.0-8.3)
[2023-08-27 18:23] LABS: APPEARANCE,URINE CLEAR (CLEAR); BILIRUBIN,URINE NEGATIVE (NEGATIVE); COLOR,URINE LIGHT-YELLOW (YELLOW); GLUCOSE, URINE (UA) 150 mg/dL (NEGATIVE); KETONES,URINE NEGATIVE (NEGATIVE); LEUKOCYTE ESTERASE ,URINE NEGATIVE Leu/uL (NEGATIVE); NITRATE,URINE NEGATIVE (NEGATIVE); OCCULT BLOOD,URINE NEGATIVE (NEGATIVE); PROTEIN,URINE 200 mg/dL (NEGATIVE); UROBILINOGEN,URINE 0.2 mg/dL (0.2-1.0)
[2023-08-27 18:31] LABS: BACTERIA,URINE MOD /HPF (None Seen); MUCUS,URINE RARE LPF (None Seen); SQUAMOUS EPITHELIAL CELL,UR RARE /HPF (0-2)
[2023-08-27] MEDS ORDERED: THIAMINE HCL 100 MG/ML 2ML VIAL IM ONE (19:30)
[2023-08-27] MEDS ORDERED: VITA0.4T5 PO (19:30)
[2023-08-27 21:36] VITALS: BP 146/68; PULSE 86; RESP 16; O2SAT 100
== END 2023-08-27 22:07 | disposition home or self-care (01) ==
LOC: EDH 11:23
DX: R25.2 Cramp and spasm (principal); H92.02 Otalgia, left ear; M79.606 Pain in leg, unspecified; I10 Essential (primary) hypertension; E11.9 Type 2 diabetes mellitus without complications; E78.00 Pure hypercholesterolemia, unspecified; Z79.84 Long term (current) use of oral hypoglycemic drugs; Z79.899 Other long term (current) drug therapy; Z98.890 Other specified postprocedural states; Z88.5 Allergy status to narcotic agent
CPT/HCPCS: 99284; 83735; 84484; 80053; 85025; 81001 ×2; 36415; 96372; J3411

== ENCOUNTER → 2023-12-02 | Outpatient (CLI) | payer MEDICAID ==
[~2023-12-02] MED LIST changes: +VITA0.4T5 PO
== END | disposition home or self-care (01) ==
LOC: RAH 12:13
PROVIDERS: ATTEND Internal Medicine Gastroenterology
DX: R13.12 Dysphagia, oropharyngeal phase (principal); R63.30 Feeding difficulties, unspecified
CPT/HCPCS: 74230; 92611

== ENCOUNTER 2023-12-29 06:43 | Day surgery (SDC) | payer MEDICAID ==
[2023-12-29] VITALS (11 sets, daily range): BP systolic 149–188; BP diastolic 75–98; PULSE 60–69; RESP 13–16
[~2023-12-29] VITALS: Ht 154.9 cm; Wt 57.6 kg
[2023-12-29] MEDS ORDERED: FOLI0.8T22 PO (08:48)
[2023-12-29] MEDS ORDERED: ESCI-8 PO (08:48)
[2023-12-29] MEDS ORDERED: PREN-64 PO (08:48)
[2023-12-29] MEDS ORDERED: CHOL100040 PO (08:48)
[2023-12-29] MEDS ORDERED: FINE10TA PO (08:48)
[2023-12-29] MEDS ORDERED: INSU300I SQ (08:48)
[2023-12-29] MEDS ORDERED: BACL10TA PO (08:48)
[2023-12-29] MEDS ORDERED: FERR-63 PO (08:48)
[2023-12-29] MEDS ORDERED: DOCU100C33 PO (08:48)
[2023-12-29] MEDS ORDERED: 0.9%NACL 1000ML 1,000 ML IV ONE (08:48)
[2023-12-29] MEDS ORDERED: ONDA-105 PO (08:48)
[2023-12-29] MEDS ORDERED: PROPOFOL 10 MG/ML 20ML VIAL IV ONE (09:16)
== END 2023-12-29 10:35 | disposition home or self-care (01) ==
LOC: DAH 06:43 → ENDO 06:43
PROVIDERS: ATTEND Internal Medicine Gastroenterology
DX: R13.10 Dysphagia, unspecified (principal); K29.50 Unspecified chronic gastritis without bleeding; K22.2 Esophageal obstruction; K21.9 Gastro-esophageal reflux disease without esophagitis; K44.9 Diaphragmatic hernia without obstruction or gangrene; K59.04 Chronic idiopathic constipation; R15.9 Full incontinence of feces; I25.10 Atherosclerotic heart disease of native coronary artery without angina pectoris; I10 Essential (primary) hypertension; E11.9 Type 2 diabetes mellitus without complications; E78.00 Pure hypercholesterolemia, unspecified; Z82.49 Family history of ischemic heart disease and other diseases of the circulatory system; Z82.3 Family history of stroke; Z83.3 Family history of diabetes mellitus; Z91.041 Radiographic dye allergy status; Z87.891 Personal history of nicotine dependence; Z79.4 Long term (current) use of insulin; Z79.84 Long term (current) use of oral hypoglycemic drugs; Z79.899 Other long term (current) drug therapy; Z95.5 Presence of coronary angioplasty implant and graft; Z98.891 History of uterine scar from previous surgery; Z72.89 Other problems related to lifestyle
CPT/HCPCS: 81025; 82948 ×2; 43239; J7030 ×2; J3490; A4620; A4215 ×2; A4223; A7002; A4222; A4221; A4663; A4606; J2704

== ENCOUNTER → 2024-01-20 | Outpatient (CLI) | payer MEDICAID ==
[~2024-01-20] MED LIST changes: -ACET-2079 PO; -AMLO-258 PO; +BACL10TA PO; +CHOL100040 PO; +DOCU100C33 PO; +ESCI-8 PO; +FERR-63 PO; +FINE10TA PO; +FOLI0.8T22 PO; -FURO40TA5 PO; -INSU100V3 IJ; +INSU300I SQ; -METF-444 PO; -MULT-1367 PO; +ONDA-105 PO; -PANT40GR PO; +PREN-64 PO; -ROSU20TA73 PO; -VITA0.4T5 PO
== END | disposition home or self-care (01) ==
LOC: SHCH 10:32
PROVIDERS: ATTEND Internal Medicine Cardiovascular Disease
DX: I87.1 Compression of vein (principal); I87.2 Venous insufficiency (chronic) (peripheral)
CPT/HCPCS: 93970

== ENCOUNTER → 2024-05-15 | Outpatient (CLI) | payer MEDICAID | END | disposition home or self-care (01) | LOC: RAH 10:46 | PROVIDERS: ATTEND Internal Medicine Gastroenterology | DX: R10.9 Unspecified abdominal pain (principal); R11.2 Nausea with vomiting, unspecified; R93.3 Abnormal findings on diagnostic imaging of other parts of digestive tract | CPT/HCPCS: 78264; A9541 ==

== ENCOUNTER 2024-11-07 06:43 | Day surgery (SDC) | payer OTHER, MEDICARE ==
[2024-11-07] VITALS (10 sets, daily range): BP systolic 148–177; BP diastolic 62–83; PULSE 53–64; RESP 11–17; TEMP 97.1–98.1
[~2024-11-07] VITALS: Ht 152.4 cm; Wt 48.5 kg
[~2024-11-07 06:43] MED LIST changes: -DOCU100C33 PO; -ESCI-8 PO; -FERR-63 PO; -FINE10TA PO; -INSU300I SQ; -LISI10TA24 PO; -ONDA-105 PO; -PREN-64 PO
[2024-11-07] MEDS ORDERED: CLOP75TA32 PO (07:22)
[2024-11-07] MEDS ORDERED: ESTR-7 PO (07:22)
[2024-11-07] MEDS ORDERED: HYDR50TA37 PO (07:22)
[2024-11-07] MEDS ORDERED: TAMS-1 PO (07:22)
[2024-11-07] MEDS ORDERED: ESCI-8 PO (07:22)
[2024-11-07] MEDS ORDERED: CHOL100046 PO (07:22)
[2024-11-07] MEDS ORDERED: AURYXIA PO (07:22)
[2024-11-07] MEDS ORDERED: CLON1PAT14 TP (07:22)
[2024-11-07] MEDS ORDERED: LOSA50TA64 PO (07:22)
[2024-11-07] MEDS ORDERED: BACL10TA PO (07:22)
[2024-11-07] MEDS ORDERED: METO100T14 PO (07:22)
[2024-11-07] MEDS ORDERED: FOLI0.8T22 PO (07:22)
[2024-11-07] MEDS ORDERED: ISOSORBIDE MONO PO (07:22)
[2024-11-07] MEDS: 0.9%NACL 1000ML 1,000 ML IV ONE (07:26)
[2024-11-07] MEDS: 0.9% NACL 500ML IV.SOLN 500 ML IV ONE (07:48)
[2024-11-07] MEDS ORDERED: proPOFol 10 MG/ML 20ML VIAL IV ONE (08:25)
== END 2024-11-07 09:50 | disposition home or self-care (01) ==
LOC: ENDO 06:43 → DAH 06:43 → ENDO 09:50
PROVIDERS: ATTEND Internal Medicine Gastroenterology
DX: R19.5 Other fecal abnormalities (principal); K31.89 Other diseases of stomach and duodenum; K26.3 Acute duodenal ulcer without hemorrhage or perforation; K59.04 Chronic idiopathic constipation; K29.70 Gastritis, unspecified, without bleeding; K82.9 Disease of gallbladder, unspecified; K44.9 Diaphragmatic hernia without obstruction or gangrene; R11.2 Nausea with vomiting, unspecified; E78.5 Hyperlipidemia, unspecified; I25.10 Atherosclerotic heart disease of native coronary artery without angina pectoris; I12.0 Hypertensive chronic kidney disease with stage 5 chronic kidney disease or end stage renal disease; E11.22 Type 2 diabetes mellitus with diabetic chronic kidney disease; N18.6 End stage renal disease; I25.2 Old myocardial infarction; K21.9 Gastro-esophageal reflux disease without esophagitis; Z86.73 Personal history of transient ischemic attack (TIA), and cerebral infarction without residual deficits; Z88.8 Allergy status to other drugs, medicaments and biological substances; Z95.5 Presence of coronary angioplasty implant and graft; Z79.899 Other long term (current) drug therapy
CPT/HCPCS: 84703; 36415; 43239; 45378; 00813; 82948 ×2; J7040; J2704; A4620; A4215 ×2; A4223; A4222; A4221; A4663; A4606; J7030; J3490